=== PATIENT | male | born 1960 | race Caucasian/White ===

== ENCOUNTER 2016-09-21 14:46 | Emergency (ER) | payer OTHER ==
[2016-09-21 15:05] VITALS: BP 145/65; PULSE 73; RESP 15; TEMP 97.9
[2016-09-21] MEDS ORDERED: DIPH,PERTUS(ACELL)TETVAC-LF 0.5 ML VIAL IM ONE (15:10)
[2016-09-21] MEDS ORDERED: BACITRACIN 500 UNIT/GM OINT 28.4 GM TUBE TOPICAL ONE (15:10)
--- NOTE | 2016-09-21 15:13 | ED ---
Burn/Smoke HPI - General Chief complaint: Burn/Smoke Inhalation Stated complaint: Finger Burn Time Seen by Provider: 09/21/16 15:06 Source: patient, RN notes reviewed Mode of arrival: ambulatory Limitations: no limitations - History of Present Illness Initial comments: This a 56-year-old male presents emergency department to complaint burn to his left hand index finger. Patient states that he was pointing fishing [place] and states that he skinned off hot lead input into a pain. He states a minute or 2 later he grabbed the rios and forgot that it was hot. Patient states that he had a burn to his left hand index finger between the MCP and PIP he is unsure when his last tetanus was. He states his skin did peel off immediately states he has full sensation to the area. He states his pain has improved is not painful like yesterday. - Related Data Home Medications Medication Instructions Recorded Confirmed Venlafaxine HCl [Effexor] 75 tab PO QAM 07/25/15 01/15/16 traZODone HCL [Desyrel] 100 mg PO HS PRN 08/19/15 01/15/16 Brexpiprazole [Rexulti] 2 mg PO DAILY 01/15/16 01/15/16 Allergies Allergy/AdvReac Type Severity Reaction Status Date / Time meperidine HCl [From Demerol] Allergy Unknown Rash/Hives Verified 09/21/16 15:05 Review of Systems ROS Statement: Those systems with pertinent positive or pertinent negative responses have been documented in the HPI. ROS Other: All systems not noted in ROS Statement are negative. Past Medical History Past Medical History: Asthma, Osteoarthritis (OA) Additional Past Medical History / Comment(s): asthma as child History of Any Multi-Drug Resistant Organisms: None Reported Past Surgical History: Orthopedic Surgery Additional Past Surgical History / Comment(s): left knee arthroscopy Past Anesthesia/Blood Transfusion Reactions: No Reported Reaction Past Psychological History: No Psychological Hx Reported Smoking Status: Current every day smoker Past Alcohol Use History: None Reported Past Drug Use History: None Reported - Past Family History Mother Family Medical History: No Reported History Father Family Medical History: Diabetes Mellitus General Exam Limitations: no limitations General appearance: alert, in no apparent distress Respiratory exam: Present: normal lung sounds bilaterally. Absent: respiratory distress, wheezes, rales, rhonchi, stridor Cardiovascular Exam: Present: regular rate, normal rhythm, normal heart sounds. Absent: systolic murmur, diastolic murmur, rubs, gallop, clicks Extremities exam: Present: other (Left hand second digit there is a second- degree burn approximately 2 cm wide that extends from MCP to the PIP but does not cross the joints patient has full sensation there is no purulent drainage no bleeding) Course Vital Signs 09/21/16 15:02 Temperature 97.9 F Pulse Rate 73 Respiratory 15 Rate Blood Pressure 145/65 O2 Sat by Pulse 98 Oximetry Medical Decision Making - Medical Decision Making 56-year-old male present emergency department for secondary burn to his finger. This was dressed with bacitracin is redness was updated. We discussed wound care and return parameters. Patient's burn does not cross any joint lines is not circumferential. Disposition Clinical Impression: Second degree burn of finger Disposition: HOME SELF-CARE Condition: Stable Instructions: Second Degree Burn (ED) Additional Instructions: Please return to the Emergency Department if symptoms worsen or any other concerns. Referrals: Travis Agudelo DO [Primary Care Provider] - 1-2 days Time of Disposition: 15:13
== END 2016-09-21 15:51 | disposition home or self-care (01) ==
LOC: EC 14:46
DX: T23.222A Burn of second degree of single left finger (nail) except thumb, initial encounter (principal); F17.200 Nicotine dependence, unspecified, uncomplicated; Z23 Encounter for immunization; Z88.5 Allergy status to narcotic agent; Z79.899 Other long term (current) drug therapy; X19.XXXA Contact with other heat and hot substances, initial encounter; Y93.89 Activity, other specified
CPT/HCPCS: 16020; 90471; 90715; 99283

== ENCOUNTER → 2016-10-26 | Outpatient (CLI) | payer OTHER ==
[2016-10-26 13:02] VITALS: BP 157/85; PULSE 93; RESP 16
--- NOTE | 2016-10-26 13:25 | P.PN ---
Progress Note - Text This is a 56-year-old male was last seen in our clinic in January 2016. At that time the patient had an RFA on the lumbar medial branches which lasted for 2 or 3 months as he states. Since then his pain has been getting worse. The patient feels pain across his lower back more on the right side than the left side with radiation to both legs down to the feet however his lower back pain is more severe than his legs pain. By physical exam he has normal muscle strength in the lower extremities and he has significant tenderness on the right side of his lower back. Facet loading test was positive. We'll use to prescribe Neurontin and Mobic for him and I am going to resume these 2 prescriptions and also give him magnesium oxide 400 mg for a complaint of muscle spasm. I will schedule the patient to have right lumbar medial branch RFA under fluoroscopic guidance.
== END | disposition home or self-care (01) ==
LOC: PNWHC3 12:25
PROVIDERS: ATTEND Anesthesiology
DX: M54.5 Low back pain (principal); Z79.899 Other long term (current) drug therapy; Z79.1 Long term (current) use of non-steroidal anti-inflammatories (NSAID); Z98.890 Other specified postprocedural states
CPT/HCPCS: 99211

== ENCOUNTER 2016-12-17 07:59 | Day surgery (SDC) | payer OTHER ==
[2016-12-15 15:56] VITALS: BMI 28.5
[~2016-12-17 07:59] MED LIST: LACTATED RINGERS 1,000 ML IV ONE
[2016-12-17 09:01] VITALS: RESP 16; TEMP 97.8
--- NOTE | 2016-12-17 10:18 | P.PCN ---
Date of Procedure: 12/17/16 Preoperative Diagnosis: lumbar spondylosis without myelopathy Postoperative Diagnosis: same as above Procedure(s) Performed: left lumbar medial branch radiofrequency ablation under fluoroscopic guidance for levels L2-L3, L3-L4, L4-L5, and L5-S1 Anesthesia: MAC (moderate conscious sedation with IV fentanyl and Versed) Surgeon: Tommy Silva Pathology: none sent Condition: stable Disposition: PACU Description of Procedure: The patient was seen and identified in the preoperative area. Risks, benefits, complications, including but not limited to risk of infection ,bleeding , allergic reactions to the medications and no complete pain relief , and alternatives were discussed with the patient, the patient agreed to proceed with the procedure and signed the consent. IV was started. Vital signs remained stable throughout the procedure. Patient was taken to the OR and time out was completed. The patient was placed in the prone position on the procedure table. The lumber area was prepped and draped in the usual sterile fashion. . Vital signs were closely monitored during the procedure .IV sedation was used during the procedure to decrease patients anxiety. The target points were identified as follows: For the L5-S1 level which corresponds to the dorsal ramus of L5 the target point was at the superior medial aspect of the sacral ala on the left side of the spine on the AP view of fluoroscopy and for the L2, L3, and L4 medial branches the target points were at the connection between the transverse process and the superior articular process of L3, L4, and L5 vertebra respectively on the left oblique view of fluoroscopy. skin was marked, and localized with 1% lidocaineat these points. Subsequently, an 18 [id number] radiofrequency needles with a 10-mm curved active tips were advanced guided by fluoroscopy to each of the target points mentioned above in a superior medial direction to get the active tips as parallel as possible to the medial branches tracks. AP, oblique, and lateral views of fluoroscopy were used to verify needle tips position. Each level then underwent motor testing at 2.5 Hz and 0 to 3 volt with local stimulation, but no radicular symptoms down the legs. Thereafter radiofrequency thermocoagulation at 80 degrees celsius for 90 seconds after injecting 1 ml of PF Marcaine 0.5%(3 mls) with 40 mg of Kenalog. At the end of the procedure, the skin was cleansed and bandages were applied. COMPLICATIONS: No acute complications. DISPOSITION / PLANS: The patient was placed in a supine position and transferred to the recovery area in a stable condition for observation and was discharged from the recovery room after meeting discharge criteria. Home discharge instructions given to the patient by the staff . The patient will schedule a follow up in the clinic in 2-4 weeks.
--- NOTE | 2016-12-17 10:23 | FL ---
EXAMINATION TYPE: FL guided pain mgmt statistic DATE OF EXAM: 12/17/2016 CLINICAL HISTORY: Low back pain. TECHNIQUE: Fluoroscopy. COMPARISON: None. FINDINGS: Fluoroscopic guidance was provided during pain relief procedure performed by Dr. Silva . A total of 22 seconds of fluoroscopic time was utilized during the procedure and 3 spot images are acquired. Images acquired shows needle localization at multiple levels in the lumbar spine. IMPRESSION: As Above.
[2016-12-17] MEDS ORDERED: IV FLUID CONTINUATION 1,000 ML IV ONE (10:25)
[2016-12-17 10:58] VITALS: BP 144/84; PULSE 60
== END 2016-12-17 11:07 | disposition home or self-care (01) ==
LOC: ORPAIN 07:59
PROVIDERS: ATTEND Anesthesiology
DX: M47.816 Spondylosis without myelopathy or radiculopathy, lumbar region (principal); Z88.5 Allergy status to narcotic agent
CPT/HCPCS: 64635; 64636 ×3; J2250; J3301; J3010; 99152; 99153

== ENCOUNTER 2017-03-01 07:12 | Day surgery (SDC) | payer OTHER ==
[2017-02-23 12:49] VITALS: BMI 29.5
[2017-03-01 07:41] VITALS: TEMP 97.8
[2017-03-01] MEDS ORDERED: LACTATED RINGERS 1,000 ML IV ONE (07:43)
[2017-03-01] MEDS ORDERED: LIDOCAINE 1% 20 ML VIAL (10MG/ML) FOR IV START INTRADERMA ONE (07:44)
--- NOTE | 2017-03-01 08:41 | P.PCN ---
Date of Procedure: 03/01/17 Procedure(s) Performed: PREOPERATIVE DIAGNOSIS: 1- Lumbar Degenerative Disc Diseases 2-Lumbar spondylosis with Facet arthropathy without myelopathy POSTOPERATIVE DIAGNOSIS: 1-Lumber Degenerative Disc Diseases 2-Lumbar spondylosis with Facet arthropathy without myelopathy PROCEDURE 1. Lumbar epidural steroid injection under fluoroscopic guidance at the L4-5 level. 2. Lumbar epidurogram. ANESTHESIA: Local with 1% lidocaine 3 ml and , moderate sedation with intravenous Versed 2 mg ,and fentanyle 100 Mcg EBL: Minimal PROCEDURE INDICATION: The patient with low back pain and radiculitis symptoms unresponsive to conservative treatment. Fluoroscopy was used to optimize visualization of the needle placement and to maximize safety. PROCEDURE DESCRIPTION / TECHNIQUE: The patient was seen and identified in the preoperative area. Risks, benefits , complications including but not limited to infections ,bleeding ,allergic reaction to the medications ,nerve damage and not complete pain releife , and alternatives were discussed with the patient. The patient agreed to proceed with the procedure and signed the consent. IV was started, and vital signs were stable. Patient was taken to the OR and time out was completed. The patient was placed in the prone position on procedure table and a pillow was placed under the abdomen to reduce lumbar lordosis. The lumbosacral area was prepped and draped in the usual sterile fashion.ere closely monitored during the procedure. Conscious sedation was used during the procedure to decrease patients anxiety. Vital signs was monitered during the entire procedure. Using anterior-posterior fluoroscopy, the L4-5interlaminar space was identified and the skin over this site was marked and then infiltrated with 1% lidocaine subcutaneously. Subsequently, a 20-gauge Tuohy epidural needle was inserted and advanced toward the epidural space using the ``Loss of resistance technique and guided by AP and lateral fluoroscopy. The correct needle position in the epidural space was verified with the injection of 2 mL of the water soluble contrast dye Omnipaque 180 contrast and observing an excellent epidurogram with the epidural spread of the dye, after negative aspiration for blood and CSF and in the absence of paresthesias. Again after negative aspiration, a 6 ml mixture containing 20 mg of Dexamethasone and 2 ml of preservative free Normal Saline, and 2 ml of preservative free lidocaine 1% solution was injected and a washout of epidurogram was seen. Needle was withdrawn intact, skin was cleansed, and bandages were applied. COMPLICATIONS: None DISPOSITION / PLANS: The patient was placed in a supine position and transferred to the recovery area in a stable condition for observation. There was no evidence of lower extremity motor or sensory deficit after the procedure. Patient was discharged from the recovery room after meeting discharge criteria. Home discharge instructions were given to the patient by the staff. The patient was reexamined prior to discharge. The patient will schedule a follow up in the clinic in 2-4 weeks.
[2017-03-01] MEDS ORDERED: IV FLUID CONTINUATION 600 ML IV ONE (08:47)
--- NOTE | 2017-03-01 08:50 | FL ---
EXAMINATION TYPE: FL guided pain mgmt statistic DATE OF EXAM: 03/01/2017 HISTORY: Pain 2 sec-1 paper film
[2017-03-01 09:06] VITALS: BP 126/79; PULSE 63; RESP 18
== END 2017-03-01 09:25 | disposition home or self-care (01) ==
LOC: ORPAIN 07:12
PROVIDERS: ATTEND Specialist
DX: M51.36 Other intervertebral disc degeneration, lumbar region (principal); M47.816 Spondylosis without myelopathy or radiculopathy, lumbar region
CPT/HCPCS: 62323; J2250; J1100; Q9965; J3010; 99152

== ENCOUNTER 2017-03-29 07:58 | Day surgery (SDC) | payer OTHER ==
[2017-03-24 13:05] VITALS: BMI 30.5
[2017-03-29] MEDS ORDERED: LIDOCAINE 1% 20 ML VIAL (10MG/ML) FOR IV START INTRADERMA ONE (08:57)
[2017-03-29 09:03] VITALS: BP 146/90; PULSE 62; RESP 16; TEMP 97.2
[2017-03-29] MEDS ORDERED: LACTATED RINGERS 1,000 ML IV ONE (09:07)
[2017-03-29] MEDS ORDERED: LACTATED RINGERS 1,000 ML IV SCH (09:45)
--- NOTE | 2017-03-29 12:13 | P.PN ---
Progress Note - Text Progress Note Date: 03/29/17 Patient presented for LESI #2 today but complained of severe numbness in bilateral feet after last LESI. Will postpone procedure to see if numbness improves and will prescribe gabapentin today. Patient will follow up in four weeks.
== END 2017-03-29 10:04 | disposition home or self-care (01) ==
LOC: ORPAIN 07:58
PROVIDERS: ATTEND Anesthesiology
DX: M51.36 Other intervertebral disc degeneration, lumbar region (principal); M54.40 Lumbago with sciatica, unspecified side; R20.0 Anesthesia of skin; Z53.8 Procedure and treatment not carried out for other reasons

== ENCOUNTER → 2017-04-06 | Outpatient (CLI) | payer OTHER ==
[2017-04-06 14:15] VITALS: BP 138/86; PULSE 86; RESP 18
--- NOTE | 2017-04-06 14:33 | P.PN ---
Progress Note - Text Progress Note Date: 04/06/17 Patient returns for followup for chronic back pain with radiation to legs with numbness and tingling. Patient recently underwent LESI x 1, and patient has had persistent numbness in bilateral feet, that has worsened after numbness that came on after previous lumbar RFA. Patient is very upset today because he has not had significant relief from any of the interventions that have been performed thus far. Patient denies adverse drug effects from medications. Today, pt denies new-onset weakness, bowel/bladder incontinence, or any other signs or symptoms of cauda equina syndrome. There are no signs of acute intoxication, and no indications of medication diversion or overuse. In addition to above, 13-point review of systems is also negative for chest pain , shortness of breath, changes in vision, changes in hearing, new onset weakness , abdominal pain, diarrhea, extreme fatigue, malaise, fever, skin changes, homicidal or suicidal ideation, or bowel or bladder incontinence. Vital Signs: Reviewed in EMR Gen: WDWN, AAOx3, NAD HEENT: NCAT, EOMI, hearing grossly normal Pulm: resp unlabored Abd: soft, NT, ND Neck: supple, trachea midline ROM in flexion lumbar spine: reduced ROM in extension lumbar spine: reduced Lumbar paravertebral tenderness: + Facet loading: + bilateral, R > L SI joint tenderness: neg Jesus Manuel's test: neg Straight leg raise: mildly + Neuro: CN II-XII grossly intact, muscle strength lower extremities PRESERVED Imaging: Reviewed in EMR Assessment: 1. lumbar radiculitis 2. lumbar spondylosis 3. chronic pain syndrome Plan: 1. Explanation: Opioid and psychological risk scores were reviewed. Diagnoses , prognoses, and multiple treatment options including but not limited to physical therapy, interventional therapies, adjuvant medical therapies, narcotic medication therapies, and surgery were discussed with the patient and all questions were answered to the patient's satisfaction. 2. Opioid agreement: no opioids prescribed today 3. Counseling: The patient was counseled extensively on BODY MASS INDEX, EXERCISE. Specifically, the patient was instructed regarding the importance of weight control, and exercise in the context of both chronic pain and overall health. 4. Procedures: none for now 5. Consultations: None 6. Investigations: EMG/NCV bilateral lower extremities 7. Medications: none 8. Disposition: f/u for procedure as scheduled PQRS measures: 1-Patient's medications are documented in the chart. 2-Tobacco use is positive 3-Patient has not had a pneumococcal vaccine. 4-Advanced care planning discussed, patient unable to give. 5-Opioid contract NOT signed with the patient. 6-Pain positive, follow-up visit or procedure scheduled 7-Patient's blood pressure measured and documented, and patient will follow up with the primary care due to hypertension. 8-Patient's weight was measured, and body mass index ABOVE the normal limits, and counseling was done. Patient instructed to follow up with PCP. 9-Patient WAS NOT identified as an unhealthy alcohol user.
== END ==
LOC: PNWHC3 13:53
PROVIDERS: ATTEND Anesthesiology
DX: G89.4 Chronic pain syndrome (principal); M47.26 Other spondylosis with radiculopathy, lumbar region
CPT/HCPCS: 99211

== ENCOUNTER → 2017-05-10 | Outpatient (CLI) | payer OTHER ==
--- NOTE | 2017-05-10 14:27 | P.PN ---
Subjective Progress Note Date: 05/10/17 This is 57 years old male with a chronic history of severe low back pain diagnosed with lumbar bulging disc disease and lumbar spondylosis, we have none radiofrequency ablation of the medial branch lumbar area, and we have done lumbar epidural steroid injections, he continued to have severe low back pain with numbness and tingling sensation in the lower extremities, he denies any change in the bowel movements or urination. Denies any motor or sensory deficit , and he reported the pain is constant and increases with any activity intensity of the pain interfering with his quality of life , and preventing him from doing activities of daily livings, Objective - Vital Signs Vital signs: Intake & Output 05/09/17 05/10/17 05/10/17 18:59 06:59 18:59 Weight 99.79 kg - Exam Physical Examinations : 1-Constitutiona : Cooperative , not in acute distress . 2-HEENT : nech ; supple , no Lymphadenopathy , normal thyroid size . eyes : no ptosis , no icterus, no photophobia . ENT : normal of hearing , normal oropharynx , no Thrush . 3- Respiratory : Chest clear to auscultations Bilaterally , no wheezing , no Rhonchi . 4- Cardiovascular : regular rate and rhythem , S1 , S2 , no S3 , no S4. 5- Gastrointestinal : abdomen soft no tenderness , bowel sounds positive all four quadrents , no organomegally . 6- Genitourinary : Defferred . 7- neurologic : Cranial nerve II to XII intact , no focal neurological deffecit . 8-psychatric : alert , oriented X 3 , appropriate affect , intact judgment and insight . 9-Lymphatic : no Lymphadenopathy . 10- musculoskeltal : , Lumber spine = normal moter stegnth lower extremities ,thigh and legs .5/5 deep tendon reflexes : normal Knee Jerk , normal ankle Jerk . lumber facet Loading Test positive strait leg raising test positive at 30 degree Right , positve at 30 degree Left Fabere test positive Right and positive Left Sever tenderness over the Sacroiliac joint on the Right , and Left side Assessment and Plan Plan: Assessment and plan= chronic low back pain secondary to lumbar degenerative disc disease , lumbar spondylosis with lumbar facet arthropathy , Patient had no benefit after lumbar epidural steroid injections, and he had no benefit after the radiofrequency ablation of the medial branch lumbar area I will refer patient to be evaluated by spine surgeon. Prescription for [place] 7.5/325 every 8 hours given, also on Neurontin 100 mg 3 times a day Time with Patient: Less than 30
[2017-05-10 15:36] VITALS: BP 139/81; PULSE 76; RESP 16
== END | disposition home or self-care (01) ==
LOC: PNWHC3 12:46
PROVIDERS: ATTEND Specialist
DX: G89.29 Other chronic pain (principal); M54.5 Low back pain; M51.36 Other intervertebral disc degeneration, lumbar region; M47.816 Spondylosis without myelopathy or radiculopathy, lumbar region; M46.86 Other specified inflammatory spondylopathies, lumbar region; Z79.891 Long term (current) use of opiate analgesic
CPT/HCPCS: 80307; G0480 ×2; G0463; 80349; 80356; 99211

== ENCOUNTER → 2017-06-07 | Outpatient (CLI) | payer OTHER ==
[2017-06-07 12:10] VITALS: BP 141/86; PULSE 80; RESP 16
--- NOTE | 2017-06-07 15:34 | P.PAINPG ---
Subjective Progress Note Date: 06/07/17 This is 57 years old male with a chronic history of severe low back pain diagnosed with lumbar bulging disc disease and lumbar spondylosis, we have none radiofrequency ablation of the medial branch lumbar area, and we have done lumbar epidural steroid injections, he continued to have severe low back pain with numbness and tingling sensation in the lower extremities, he denies any change in the bowel movements or urination. Denies any motor or sensory deficit , and he reported the pain is constant and increases with any activity intensity of the pain interfering with his quality of life , and preventing him from doing activities of daily livings, patient currently on [place] 7.5/325 every 8 hours when necessary for pain and Neurontin 3 mg every 8 hours, he denies any side effects of the medication he denies any excessive drowsiness or sleepiness, patient was started on this medication last, he reported that he used to use marijuana and he stopped using it since we started him on the pain medication, and he reported the current pain medication helping him to control the pain, Objective - Vital Signs Vital signs: Vital Signs Temp Pulse 80 06/07/17 12:03 Resp 16 06/07/17 12:03 BP 141/86 06/07/17 12:03 Pulse Ox Intake & Output 06/06/17 06/07/17 06/07/17 18:59 06:59 18:59 Weight 97.522 kg - Exam Physical Examinations : 1-Constitutiona : Cooperative , not in acute distress . 2-HEENT : nech ; supple , no Lymphadenopathy , normal thyroid size . eyes : no ptosis , no icterus, no photophobia . ENT : normal of hearing , normal oropharynx , no Thrush . 3- Respiratory : Chest clear to auscultations Bilaterally , no wheezing , no Rhonchi . 4- Cardiovascular : regular rate and rhythem , S1 , S2 , no S3 , no S4. 5- Gastrointestinal : abdomen soft no tenderness , bowel sounds positive all four quadrents , no organomegally . 6- Genitourinary : Defferred . 7- neurologic : Cranial nerve II to XII intact , no focal neurological deffecit . 8-psychatric : alert , oriented X 3 , appropriate affect , intact judgment and insight . 9-Lymphatic : no Lymphadenopathy . 10- musculoskeltal : , Lumber spine = normal moter stegnth lower extremities ,thigh and legs .5/5 deep tendon reflexes : normal Knee Jerk , normal ankle Jerk . lumber facet Loading Test positive strait leg raising test positive at 30 degree Right , positve at 30 degree Left Fabere test positive Right and positive Left Assessment and Plan Plan: Assessment and plan= chronic low back pain secondary to lumbar degenerative disc disease , lumbar spondylosis with lumbar facet arthropathy , Patient already scheduled appointment with the spine surgeon Dr. Durham will see him next few days chronic and current use of high-risk medication (opioids) Patient denies any side effects of the current pain medication and the current treatment/medication ML and the patient to do activity of daily living , Diagnoses, prognosis, treatment options, including but not limited to physical therapy, medication management, interventional therapies, and surgery, were discussed with the patient All the questions answered Patient signed the narcotic agreement, and he was orally counseled, not to overuse, not to abuse, not to Divert , not tp sell pain medication, and to take it as prescribed only, Patient was counseled not to drive or operate heavy equipment while using narcotic medication, and advised not to use alcohol or any Illicit drugs while using the narcotis, the patient's verbalized understanding that lack of compliance with any of the above instructions and will likely to cause discharge from the pain service, not to renew his narcotic prescriptions Medication managements= patient will be given prescription refills for [place] 7.5/325 every 8 hours dispense 90, Neurontin 100 mg 3 times a day dispense 90 , Urine drug screen ordered today the Angus was reviewed and it was appropriate , Time with Patient: Less than 30 PQRS Measure Charge Sheet Measure #130: Documentation of Current Meds in Medical Chart: Patient's medications documented in chart Measure #226: Tobacco Use: Screen & Cessation Intervention: Pt screened for tobacco use AND intervention given Measure #111: Pneumonia Vaccination: Pneumococcal vaccine NOT administered or previously given Measure #47: Advance Care Plan: Advance care planning discussed & documented, plan or surrogate given Measure #412: Opioid Treatment Agreement: Documented signed opioid trtmnt agreemnt min once during opioid trtmnt Measure #408: Opioid Therapy Follow-up Evaluation: Patient had f/u eval minimum every 3 months during opioid therapy Measure #317: Preventitive Care & Scrn High Bld Press & F/U: Pre-hypertensive or hypertensive BP documented, pt will f/u with PCP Measure #128: Body Mass Index (BMI) Screening & Follow-up: BMI documented ABOVE normal parameters - f/u documented Measure #131: Pain Assessment & Follow-up: Pain positive & plan documented, Follow-up scheduled Measure #431: Unhealthy Alcohol Use Preventative Care & Scrn: Patient not identified as an unhealthy alcohol user PQRS Narrative: Smoking Status Current every day smoker Do You Want the Pneumonia No Vaccine AT THIS TIME? Narcotic Agreement Date Signed 05/10/17 Blood Pressure 141/86 Pain Intensity [Bilateral 4 Lower Back] Scale Used Numeric (1 - 10) Hx Alcohol Use (MH) No Home Medications: Ambulatory Orders Venlafaxine HCl [Effexor] 75 tab PO QAM 07/25/15 QUEtiapine [SEROquel] 50 mg PO HS 11/16/16 Gabapentin [Neurontin] 100 mg PO TID #90 cap 06/07/17 HYDROcodone/APAP 7.5-325MG [[place] 7.5-325] 1 tab PO Q6HR PRN #90 tab 06/07/17 Controlled Substance Measures - Controlled Substance Measures Is patient prescribed a controlled substance at discharge?: Yes If prescribed controlled substance>3 days was MAPS reviewed?: Yes When asked, does pt state using other controlled substances?: No
== END | disposition home or self-care (01) ==
LOC: PNWHC3 11:51
PROVIDERS: ATTEND Specialist
DX: G89.29 Other chronic pain (principal); M54.5 Low back pain; M51.36 Other intervertebral disc degeneration, lumbar region; M47.816 Spondylosis without myelopathy or radiculopathy, lumbar region; M46.86 Other specified inflammatory spondylopathies, lumbar region; F17.200 Nicotine dependence, unspecified, uncomplicated; Z79.52 Long term (current) use of systemic steroids; Z79.891 Long term (current) use of opiate analgesic; Z79.899 Other long term (current) drug therapy
CPT/HCPCS: 80307; G0480 ×3; G0463; 80349; 80356; 80364; 99211

== ENCOUNTER → 2017-06-29 | Outpatient (CLI) | payer OTHER ==
[2017-06-29 14:56] LABS: Basophils % (A) 1 %; Eosinophils # (A) 0.1 k/uL (0-0.7); Eosinophils % (A) 2 %; HGB 15.2 gm/dL (13.0-17.5); Lymphocytes # (A) 1.5 k/uL (1.0-4.8); Lymphocytes % (A) 25 %; MCH 31.8 pg (25.0-35.0); MCHC 34.5 g/dL (31.0-37.0); MCV 92.3 fL (80.0-100.0); Mean Platelet Volume 6.6; Monocytes # (A) 0.4 k/uL (0-1.0); Monocytes % (A) 6 %; Neutrophils # (A) 3.9 k/uL (1.3-7.7); Neutrophils % (A) 64 %; Platelet Count 281 k/uL (150-450); RBC 4.77 m/uL (4.30-5.90); RDW 12.7 % (11.5-15.5); WBC 6.1 k/uL (3.8-10.6)
[2017-06-29 14:59] LABS: Amorphous Sediment,Urine Rare /hpf; Appearance,Urine Cloudy (Clear); Bacteria,Urine Moderate /hpf; Bilirubin,Urine Negative (Negative); Blood,Urine Negative (Negative); Color,Urine Yellow; Glucose,Urine (UA) Negative (Negative); Ketones,Urine Negative (Negative); Leukocyte Esterase,Urine Negative (Negative); Mucus,Urine Rare /hpf; Nitrite,Urine Negative (Negative); PH, Urine 6.5 (5.0-8.0); Protein,Urine Negative (Negative); RBC,Urine 8 /hpf (0-5); Specific Gravity,Urine 1.014 (1.001-1.035); Urobilinogen,Urine <2.0 mg/dL (<2.0); WBC,Urine 3 /hpf (0-5)
[2017-06-29 15:02] LABS: Partial Thromboplastin Time 24.3 sec (22.0-30.0); Prothrombin Time 9.8 sec (9.0-12.0)
--- NOTE | 2017-06-29 15:18 | XR ---
EXAMINATION TYPE: XR chest 2V DATE OF EXAM: 06/29/2017 COMPARISON: NONE INDICATION: Presurgical clearance TECHNIQUE: Frontal and lateral views of the chest are obtained. FINDINGS: The heart size is normal. The pulmonary vasculature is normal. The lungs are clear. IMPRESSION: 1. No acute pulmonary process.
== END | disposition home or self-care (01) ==
LOC: LABPAT 14:13
PROVIDERS: ATTEND Orthopaedic Surgery Orthopaedic Surgery of the Spine
DX: Z01.818 Encounter for other preprocedural examination (principal); Z01.812 Encounter for preprocedural laboratory examination; M48.07 Spinal stenosis, lumbosacral region
CPT/HCPCS: 36415; 71046; 81001; 85025; 85610; 85730; 87070

== ENCOUNTER → 2017-07-01 | Outpatient (CLI) | payer OTHER ==
[2017-07-01 12:08] VITALS: BP 152/93; PULSE 86; RESP 16
--- NOTE | 2017-07-01 12:30 | P.PAINPG ---
Subjective Progress Note Date: 07/01/17 Principal diagnosis: Lumbar radiculopathy This is a 57 she'll generally presents today for medication management. He is undergone injection therapy for his low back pain and this has not been effective. He is currently scheduled for lumbar spine surgery in approximately 2 weeks. He reports pain in his back which radiates down his legs. He denies bowel or bladder dysfunction. Objective - Vital Signs Vital signs: Vital Signs Temp Pulse 86 07/01/17 11:59 Resp 16 07/01/17 11:59 BP 152/93 07/01/17 11:59 Pulse Ox Intake & Output 06/30/17 07/01/17 07/01/17 18:59 06:59 18:59 Weight 97.522 kg - Exam General: The patient is alert and oriented. Patient is not sedateded Patient is a question appropriately. Cardiac: Heart is regular in rate and rhythm Respiratory: Clear to auscultation. No audible wheezes. Abdomen: Soft nontender nondistended. Lower extremities: Strength is normal bilaterally. Sensation is normal bilaterally. Reflexes are preserved and symmetric bilaterally. Straight leg raise is positive bilaterally. Significant pain with facet loading. Assessment and Plan (1) Lumbar radiculopathy Current Visit: Yes Status: Acute Code(s): M54.16 - RADICULOPATHY, LUMBAR REGION SNOMED Code(s): 995100518 Plan: Plan of Care 1. Medications: Refill the patient's description for [place] today. I have reviewed his previous urine drug screens. Both of them were positive for marijuana however the levels of marijuana had fallen precipitously. Given the timeframe, I do believe the patient is complying with this plan of care. He will receive a refill today and then further refills will be through his spine surgeon after his operation. I have reviewed the patient's MAPS report and it reveals expected results. Patient has signed an opiate agreement as well as opiate consent for treatment in our clinic. They understand the risks and benefits of opiate medications. They are aware of the potential for addiction. 2. Interventions: no Further indications for intervention at this time 3. Referrals: None 4. Testing: None 5. Psychological: Patient doesn't have a history of severe depression including suicide attempt. He is currently under the care of a mental health professionals. He reports that his depression is under good control. He denies any exacerbation of his depression from these opiates. He is well aware of the serious problem of depression and is in agreement to continue treating with his psychologist. PQRS Measure Charge Sheet Measure #130: Documentation of Current Meds in Medical Chart: Patient's medications documented in chart Measure #226: Tobacco Use: Screen & Cessation Intervention: Pt not a tobacco user Measure #111: Pneumonia Vaccination: Pneumococcal vaccine NOT administered or previously given Measure #47: Advance Care Plan: Advance care planning discussed & documented, pt chose/unable to give Measure #412: Opioid Treatment Agreement: Documented signed opioid trtmnt agreemnt min once during opioid trtmnt Measure #408: Opioid Therapy Follow-up Evaluation: Patient had f/u eval minimum every 3 months during opioid therapy Measure #317: Preventitive Care & Scrn High Bld Press & F/U: Pre-hypertensive or hypertensive BP documented, pt will f/u with PCP Measure #128: Body Mass Index (BMI) Screening & Follow-up: BMI documented within normal parameters Measure #131: Pain Assessment & Follow-up: Pain positive & plan documented Measure #431: Unhealthy Alcohol Use Preventative Care & Scrn: Patient not identified as an unhealthy alcohol user PQRS Narrative: Smoking Status Current every day smoker Do You Want the Pneumonia No Vaccine AT THIS TIME? Narcotic Agreement Date Signed 05/10/17 Blood Pressure 152/93 Pain Intensity [Bilateral 7 Lower Back] Scale Used Numeric (1 - 10) Hx Alcohol Use (MH) No Home Medications: Ambulatory Orders Venlafaxine HCl [Effexor] 75 tab PO QAM 07/25/15 QUEtiapine [SEROquel] 50 mg PO HS 11/16/16 Gabapentin [Neurontin] 100 mg PO TID #90 cap 06/07/17 HYDROcodone/APAP 7.5-325MG [[place] 7.5-325] 1 tab PO Q6HR PRN #90 tab 06/07/17 Controlled Substance Measures - Controlled Substance Measures Is patient prescribed a controlled substance at discharge?: Yes When asked, does pt state using other controlled substances?: No If prescribed controlled substance>3 days was MAPS reviewed?: Yes If Rx opioid, was Start Talking consent form obtained?: No If opioid is for acute pain is fill amount 7 days or less?: No Was information provided regarding opioid addiction?: Yes
== END | disposition home or self-care (01) ==
LOC: PNWHC3 11:54
PROVIDERS: ATTEND Pain Medicine Pain Medicine
DX: M54.16 Radiculopathy, lumbar region (principal); F17.200 Nicotine dependence, unspecified, uncomplicated; Z79.891 Long term (current) use of opiate analgesic; Z79.899 Other long term (current) drug therapy; Z76.89 Persons encountering health services in other specified circumstances
CPT/HCPCS: 99211

== ENCOUNTER 2017-07-14 05:48 | Inpatient (IN) | payer OTHER ==
[2017-07-06 14:30] VITALS: BMI 29.1
[~2017-07-14 05:48] MED LIST changes: +BACITRACIN 50,000 UNIT, POLYMYXIN B 500,000 UNIT in SODIUM CHLORIDE 0.9% IRRIGATIO 1,00... IRRIGATION ONE; -LACTATED RINGERS 1,000 ML IV ONE; +ceFAZolin IN SWFI 2 GM/20 ML SYRINGE IVP ONE
[2017-07-14] MEDS ORDERED: LACTATED RINGERS 1,000 ML IV ONE ×2 (06:36→08:48)
[2017-07-14] MEDS ORDERED: ONDANSETRON 4 MG/2 ML VIAL ONE (06:43)
[2017-07-14] MEDS ORDERED: ONDANSETRON 4 MG/2 ML VIAL IVP ONE (06:49)
[2017-07-14] MEDS ORDERED: GLYCOPYRROLATE 0.2 MG/ML 2 ML VIAL ONE (07:58)
[2017-07-14] MEDS ORDERED: fentaNYL (PF) 50 MCG/ML 2 ML AMP ONE (07:58)
[2017-07-14] MEDS ORDERED: MIDAZOLAM 2 MG/2 ML VIAL ONE (07:58)
[2017-07-14] MEDS ORDERED: PROPOFOL 10 MG/ML 20 ML VIAL IV ONE (07:58)
[2017-07-14] MEDS ORDERED: PHENYLEPHRINE-0.9% NACL SYG 1 MG/10 ML SYRINGE ONE (07:58)
[2017-07-14] MEDS ORDERED: HEPARIN SODIUM,PORCINE 10,000 UNIT/ML 1 ML VIAL ONE (07:58)
[2017-07-14] MEDS ORDERED: ePHEDrine SULFATE/0.9% NACL/PF 50 MG/5 ML SYRINGE IV ONE (07:58)
[2017-07-14] MEDS ORDERED: WATER FOR INJECTION, STERILE 10 ML VIAL IV ONE (07:58)
[2017-07-14] MEDS ORDERED: SUCCINYLCHOLINE CHLORIDE 100 MG/5 ML SYR IV ONE (07:58)
[2017-07-14] MEDS ORDERED: LIDOCAINE 1% INJ 10MG/ML (20 ML MDV) ONE (07:58)
[2017-07-14] MEDS ORDERED: SODIUM CHLORIDE 0.9% IRRIG 1,000 ML BTL IRRIGATION ONE (07:58)
[2017-07-14] MEDS ORDERED: LIDOCAINE 0.5%-EPI 1:200,000 50 ML VIAL SQ ONE (08:47)
[2017-07-14] MEDS ORDERED: THROMBIN (BOVINE) 5,000 UNIT VIAL TOPICAL ONE (08:47)
[2017-07-14] MEDS ORDERED: GELATIN SPONGE,ABSORB (SMALL) 1 EACH SPONGE TOPICAL ONE (08:47)
[2017-07-14] MEDS ORDERED: BUPIVACAINE-EPI 0.5%-1:200,000 10 ML VIAL SQ ONE ×2 (08:47)
[2017-07-14] MEDS ORDERED: BENZOCAINE/MENTHOL LOZENG 1 EACH LOZENGE MUCOUS MEM PRN (11:52)
[2017-07-14] MEDS ORDERED: HYDROmorphone 0.5 MG/0.5 ML SYRINGE IVP PRN (11:52)
[2017-07-14] MEDS ORDERED: ONDANSETRON 4 MG/2 ML VIAL IVP PRN (11:52)
[2017-07-14] MEDS ORDERED: HYDROcodone/APAP 5-325MG 1 EACH TAB PO PRN ×2 (11:52)
[2017-07-14] MEDS ORDERED: MAGNESIUM HYDROXIDE 2,400 MG/10 ML CUP PO PRN (11:52)
--- NOTE | 2017-07-14 11:59 | XR ---
Fluoroscopy History: lumbar fusion lumbar fusion, 1min 31sec fl time
--- NOTE | 2017-07-14 12:02 | P.OP ---
Date of Procedure: 07/14/17 Preoperative Diagnosis: Spinal stenosis L4 4 5 L5-S1, degenerative disc disease L4 5 L5-S1, lower extremity radiculopathy, facet arthrosis, low back pain Postoperative Diagnosis: Same Anesthesia: GETA Pathology: none sent Condition: stable Disposition: PACU Description of Procedure: DESCRIPTION OF PROCEDURE(S): BRIEF OPERATIVE NOTE Preoperative Diagnosis: Spinal stenosis L 4 5 L5-S1, degenerative disc disease L4 5 L5-S1, lower extremity radiculopathy, facet arthrosis, low back pain Postoperative Diagnosis: Same Procedure: Laminectomy and decompression L4 5 L5-S1 Minimally invasive Posterior lateral decompression and fusion L4 5 L5-S1 Minimally invasive Transforaminal lumbar interbody fusion for a 360 fusion L4 5 L5-S1 Discectomy for decompression L4 5 L5-S1 Placement of interbody graft L4 5 L5-S1 Local autogenous bone grafting Harvesting of bone marrow aspirate via the pedicle of L4 on the right Use of Cell Saver Use of bone graft extenders Surgeon: Dr. Durham Estimating Engineer: Noe ZAMORA who is present throughout the entire the case persistence during positioning, dissection, exposure, visualization, and all crucial elements of the case as well as closure. Anesthesia: General anesthesia Estimated blood loss: Approximately 500 mL with 211 given back through Cell Saver Complications: None apparent Components implanted: K to him minimally invasive [place] pedicle screw system with 6.5 mm screws 2 rods, one Hart interbody cage and 1 peek interbody peek cage, as well as 1 osteo amp sponge and 30 mL of DBX bone fibers to supplement the local autogenous bone graft and bone marrow aspirate Disposition: To recovery room in good stable condition. OPERATIVE INDICATIONS The patient has had long-standing issues in their lower back and lower extremities. He was found to have significant changes at L4 5 and L5-S1 with spinal stenosis and degenerative disc disease. His symptoms had been progressive and he had shown evidence of worsening over on his imaging findings. His imaging correlated well with his low back and lower extremity symptoms. The patient has been through conservative treatment. He is not having any prolonged benefit despite aggressive conservative treatment. We discussed various treatment options including surgery, and the patient wishes to proceed with surgery We discussed the risk, patient's alternatives and benefits of surgery including but not limited to, risk of bleeding risk of infection, risk of need for further surgery, risk of decreased, loss of motion, muscle function, malunion nonunion, hardware failure, nerve damage, paralysis, heart attack, blindness and . OPERATIVE SUMMARY After discussing all the risks, patient alternatives and benefits at length, the patient elected to proceed with surgical intervention, signed informed consent, and presented for their procedure. The patient was seen and examined in the preoperative holding area and the surgical site was marked. The patient was given antibiotics and brought to the operating room. The patient was sedated and intubated by anesthesia in standard fashion. The patient was positioned on to the operating room table in a prone position on the appropriate frame which was well-padded and well molded. We were careful to pad any bony prominences and pressure points. We were careful to maintain the patient's cervical spine and good neutral alignment and position throughout. The patient was prepped and draped in a normal standard fashion. An appropriate timeout and keystone protocol performed. We were able to proceed with the surgery. The local wound area was infiltrated with local anesthetic. I was able utilize C-arm guidance to establish appropriate position over the pedicles bilaterally at the appropriate levels at L4 5 and S1. With the appropriate levels confirmed was able to make small stab incisions over the appropriate pedicle sites bilaterally. Utilizing C-arm in his house able to establish a Jamshidi needle over the lateral aspect of the pedicle and advanced the trocar into the pedicle being careful not to breech superiorly inferiorly medially or laterally. Position was confirmed regularly with AP and lateral images on C-arm. I was able to establish the trocar into the pedicle appropriately into the posterior aspect of the vertebral body bilaterally at the appropriate levels at L4 5 and S1. This was done at each of the pedicle positions and each of the vertebrae. At L4 on the right I set up to aspirate bone marrow aspirate via the trocar. I was able to aspirate approximately 20 mL of bone marrow aspirate to be used with the local and allograft bone graft later in the case. I was able place the guidewire into the trocar and into the vertebral body appropriately under C-arm guidance at each level. Dissection was taken down over the wire to the appropriate starting position for the screw placed. The appropriate length screw was chosen, threaded over the guidewire and screwed appropriately into the pedicle and vertebral body under C-arm guidance in excellent alignment and position with good bony purchase. This is done at each of the screw sites at the appropriate levels at L4 5 and S1. With the screws intact I extended the incision to connect the screw hole sites on the most symptomatic side on the right. I dissected down to establish access over the pars and lamina to the base of the spinous process. I was able to expose the facet joint. The capsule the facet was taken down and showed some facet arthrosis at the joint. I was able to use a combination of curettes and [place] rongeurs and a high-speed drill to take down the facet joint and do a facetectomy. Partial laminectomy was also performed. Note was made of significant thickening of the ligamentum flavum and narrowing of the neural foramen at L4 5 and L5-S1. I was able get excellent foraminal decompression and central decompression with undermining across midline to perform a laminectomy centrally and contralaterally. As able get good central decompression. The ligamentum flavum was taken down to further decompress centrally and at bilateral neural foramen. I was able to expose the disc space and visualize the traversing nerve root. Note was made of some disc protrusion at the level causing further compression of the nerve root. I was able to establish a annulotomy at the appropriate level protecting soft tissue and neural structures at L4 5 and L5-S1. Note was made of some disc desiccation at the disc. I performed a complete discectomy with accommodation of curettes and rasps and scrapers. I was able get good endplate preparation at the disc space. I sized for the appropriate size interbody spacer protecting the soft tissue and neural structures. The wound was copiously irrigated and suctioned dry. There is no evidence of any dural tear or leak. I was able to pack the disc space with local autogenous bone graft as well as a small amount of bone graft which was also placed into the interbody cage itself. Protecting the soft tissue structures and neural structures I was able place the interbody cage in good alignment and good position with good fit and fill at the interbody space. His issues was confirmed with C-arm guidance. Good hemostasis maintained. There is no evidence of any dural tear or leak. The wound was irrigated and suctioned dry. With the hardware intact, intraoperative C-arm imaging was again taken which showed good alignment and position of the hardware at the appropriate levels at L4 5 and L5-S1. We were then able to measure, contour and place the rods and appropriate hardware bilaterally. I was able to place capcrews, tighten them down, and torque them with the torque screwdriver appropriately. With this intact I was able to place the local autogenous bone graft with additional bone graft enhancer as necessary into the posterior lateral gutters over the decorticated transverse processes. The remainder of the bone graft was placed over the facet joint on the contralateral side after taking down the facet joint capsule. With the bone graft intact, a stable construct, and good decompression at the appropriate levels, we were able to proceed with closure. Good hemostasis was maintained. There is no evidence of dural tear or leak. The fascia was closed for a watertight closure. he subcuticular tissue was closed with absorbable suture. The wound was cleaned and dried and dressed with the appropriate dressing. The drapes were broken down. The patient was gently rolled back onto their hospital bed being careful to maintain their cervical spine and good neutral alignment and position. They were woken up by anesthesia, extubated, and brought to the recovery room in good stable condition. The patient will be admitted to the hospital for appropriate postoperative care , medical management and monitoring. We will continue to follow them closely about the postoperative course.
[2017-07-14] MEDS: HYDROmorphone 1 MG/ML 1 ML SYRINGE IVP ONE ×4 (12:16→13:09)
[2017-07-14] MEDS: SODIUM CHLORIDE 0.9% 1,000 ML IV SCH (13:29)
[2017-07-14] MEDS: HYDROmorphone 0.5 MG/0.5 ML SYRINGE IVP PRN ×3 (14:20→23:05)
[2017-07-14] MEDS: GABAPENTIN 100 MG CAP PO SCH ×2 (16:13→20:55)
[2017-07-14] MEDS: ceFAZolin IN SWFI 2 GM/20 ML SYRINGE IVP SCH ×2 (16:13→23:05)
[2017-07-14] MEDS: DIAZEPAM 5 MG TAB PO PRN ×2 (16:13→21:37)
[2017-07-14] MEDS: HYDROcodone/APAP 7.5-325MG 1 EACH TAB PO PRN (17:51)
[2017-07-14] MEDS: NICOTINE 14MG/24HR PATCH TRANSDERM SCH (19:02)
--- NOTE | 2017-07-14 20:04 | CONS ---
CONSULTATION DATE OF CONSULTATION: 07/14/17 REASON FOR CONSULTATION: Medical management requested by Dr. Durham. CONSULTATION: This is a pleasant 57 year old patient with severe lumbar arthritis, radiculopathy down the leg, has undergone surgery for the same. Postop has got significant pain. No nausea, vomiting. Lying in bed. Chronic stable medical conditions include chronic tinnitus, insomnia, depression, osteoarthritis. REVIEW OF SYSTEMS: Constitutional: Tired. HEENT: Chronic tinnitus. Respiratory: Occasional short of breath. Cardiovascular none. Gastrointestinal none. Genitourinary: None. Musculoskeletal: Arthritic pain in many joints. Dermatological and hematologic, lymphatic none. Psychiatry none. Psychiatry: Depression, controlled. Neurological: Trouble sleeping. PAST MEDICAL HISTORY: Asthma, hearing disorder, osteoarthritis, chronic low back pain, asthma as a child, chronic tinnitus. PAST SURGICAL HISTORY: Left knee arthroscopy. PAST PSYCH HISTORY: Depression. SOCIAL HISTORY: The patient smoked for close to 40 years, less than a pack a day. 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 FAMILY HISTORY: Reviewed noncontributory to presentation. HOME MEDICATIONS: 1. Effexor 75 mg a day. 2. Seroquel 100 mg q.h.s. 3. [place] 7.5 one tab q.6h p.r.n. 4. Neurontin 100 mg t.i.d. ALLERGIES: None. PHYSICAL EXAMINATION: VITAL SIGNS: Temperature 97.8, pulse 80, respirations 16, blood pressure 120/80, pulse ox 95% on room air. GENERAL APPEARANCE: Average build, lying in bed. Some uncomfortable appearing. EYES: Pupils are equal. Conjunctivae normal. HEENT: External appearance of nose and ears normal. Oral cavity normal. NECK: JVD not raised. Mass not palpable. RESPIRATORY effort normal. LUNGS slightly decreased breath sounds. CARDIOVASCULAR: 1st and 2nd sounds normal. No edema. ABDOMEN: Soft, nontender. Liver and spleen not palpable. LYMPHATICS: No lymph nodes palpable in neck or axillae. PSYCHIATRY: Alert and oriented x3. Mood and affect anxious-appearing. NEUROLOGICAL: Pupils equal. Cranial nerves grossly intact. EXTREMITIES: Somewhat limited range of motion lower extremity because of pain. Venodyne boots in place. Dressing of the lower lumbar spine. INVESTIGATIONS: No blood work was done. ASSESSMENT: 1. Lumbar spine surgery for severe pain and radiculopathy. 2. Primary osteoarthritis. 3. Chronic bilateral tinnitus. 4. Chronic insomnia idiopathic. 5. Depression not otherwise specified. 6. Chronic nicotine dependence, patient is a cigarette smoker. PLAN: Home medications are resumed. The patient will be given a nicotine patch. Patient getting IV fluids. Venodyne boots for DVT prophylaxis. Pain control per Dr. Durham. Care was discussed with the patient. Copy to Dr. Agudelo. MMODL / IJN: [id number] /
[2017-07-14] MEDS: QUEtiapine 100 MG TAB PO SCH (20:55)
[2017-07-15] MEDS: HYDROcodone/APAP 7.5-325MG 1 EACH TAB PO PRN ×4 (00:14→20:01)
[2017-07-15] MEDS: DIAZEPAM 5 MG TAB PO PRN (02:38)
[2017-07-15] MEDS: HYDROmorphone 0.5 MG/0.5 ML SYRINGE IVP PRN ×6 (03:42→21:33)
[2017-07-15] MEDS: SODIUM CHLORIDE 0.9% 1,000 ML IV SCH ×2 (03:44→14:43)
[2017-07-15 08:02] LABS: Basophils % (A) 0 %; Eosinophils % (A) 0 %; HCT 38.9 % (39.0-53.0); HGB 13.3 gm/dL (13.0-17.5); Lymphocytes # (A) 1.2 k/uL (1.0-4.8); Lymphocytes % (A) 11 %; MCH 31.6 pg (25.0-35.0); MCHC 34.1 g/dL (31.0-37.0); MCV 92.7 fL (80.0-100.0); Mean Platelet Volume 6.7; Monocytes # (A) 0.6 k/uL (0-1.0); Monocytes % (A) 5 %; Neutrophils # (A) 8.5 k/uL (1.3-7.7); Neutrophils % (A) 82 %; Platelet Count 239 k/uL (150-450); RDW 12.6 % (11.5-15.5); WBC 10.3 k/uL (3.8-10.6)
[2017-07-15 08:21] LABS: Anion Gap 11 mmol/L; Blood Urea Nitrogen 15 mg/dL (9-20); Calcium 8.7 mg/dL (8.4-10.2); Carbon Dioxide 24 mmol/L (22-30); Chloride 102 mmol/L (98-107); Glucose 116 mg/dL (74-99); Potassium 3.7 mmol/L (3.5-5.1); Sodium 137 mmol/L (137-145)
--- NOTE | 2017-07-15 08:59 | P.PN ---
Progress Note - Text Progress Note Date: 07/15/17 Postoperative day #1 Patient is seen and examined today at bedside. The patient has some pain around the surgical site as expected. Pain is being controlled with medication. He has been able to void on his own. He has been able tolerate his diet without any problems thus far. He has not yet been out of bed. Physical Exam Afebrile with stable vital signs Abdomen is soft nontender. Chest has good excursion deep and space expiration The incision site is clean dry and intact. No erythema there is no purulence. The dressing is clear without any active drainage. Extremities have not had neurologic change from prior to surgery. He has sustained dorsal flexion plantar flexion and extensor hallucis longus intact. Calves and thighs were soft nontender without evidence of DVT. Assessment/Plan Postoperative day #1 status post decompression and fusion at L4 5 and L5-S1 for his spinal stenosis and degenerative disc disease with lower extremity radiculopathy Patient is progressing as expected from the surgery. He has not yet been out of bed but we will get him out of bed with physical therapy today. He is okay for him to lay in whatever position makes him most comfortable. We will continue to increase the patient's mobilization with therapy. We will continue pain control with oral or IV medications. We'll continue to follow patient closely.
[2017-07-15] MEDS: NICOTINE 14MG/24HR PATCH TRANSDERM SCH (09:04)
[2017-07-15] MEDS: GABAPENTIN 100 MG CAP PO SCH ×3 (09:04→21:34)
[2017-07-15] MEDS: VENLAFAXINE HCL 75 MG TAB PO SCH (09:04)
[2017-07-15] MEDS: SENNOSIDES-DOCUSATE SODIUM 1 EACH TAB PO SCH (09:28)
--- NOTE | 2017-07-15 20:32 | PN ---
PROGRESS NOTE DATE OF SERVICE: July 15, 2017. PRESENTING COMPLAINT: Lumbar surgery. INTERVAL HISTORY: This patient is status post lumbar surgery. Still having significant pain, has been making urine. Did not have a bowel movement. Did tolerate a diet. No nausea, vomiting. Has been out of bed. REVIEW OF SYSTEMS: Done for constitutional, cardiovascular, GI, pulmonary; relevant findings as above. CURRENT MEDICATIONS: Reviewed include Dilaudid. PHYSICAL EXAMINATION: VITAL SIGNS: Temperature 97.7, pulse 74, respirations 16, blood pressure 146/68, pulse ox 96% on room air. GENERAL APPEARANCE: Lying in bed. Some discomfort. EYES: Pupils are equal. Conjunctivae normal. HEENT: External appearance of nose and ears normal. Oral cavity normal. NECK: JVD not raised. Mass not palpable. RESPIRATORY: Effort normal. LUNGS: Decreased breath sounds. CARDIOVASCULAR: 1st and second sounds. No edema. ABDOMEN: Soft, nontender. Liver and spleen not palpable. PSYCHIATRY: Alert and oriented x3. Mood and affect normal. INVESTIGATIONS: White count 10.3, hemoglobin 13.3. ASSESSMENT: 1. Post lumbar spine surgery for severe pain and radiculopathy. Postop pain is present. 2. Primary osteoarthritis. 3. Chronic bilateral tinnitus. 4. Chronic insomnia idiopathic. 5. Depression not otherwise specified. 6. Chronic nicotine dependence, patient is a cigarette smoker. PLAN: Continue current medication and treatment plan. Encourage the patient to be out of bed and sit up on a chair. MMODL / IJN: [id number] /
[2017-07-15] MEDS: QUEtiapine 100 MG TAB PO SCH (21:34)
[2017-07-16] MEDS: HYDROmorphone 0.5 MG/0.5 ML SYRINGE IVP PRN ×5 (01:00→19:50)
[2017-07-16] MEDS: SODIUM CHLORIDE 0.9% 1,000 ML IV SCH ×2 (05:16→17:40)
[2017-07-16] MEDS: HYDROcodone/APAP 7.5-325MG 1 EACH TAB PO PRN ×2 (05:58→16:13)
[2017-07-16] MEDS: VENLAFAXINE HCL 75 MG TAB PO SCH (08:14)
[2017-07-16] MEDS: GABAPENTIN 100 MG CAP PO SCH ×3 (08:14→21:17)
--- NOTE | 2017-07-16 08:45 | P.PN ---
Progress Note - Text Progress Note Date: 07/16/17 Orthopedic Spine Patient is a pleasant 57-year-old male who is seen and examined at the bedside following posterior lateral decompression and fusion performed Wednesday. Patient states they are doing ok postsurgically. He continues to have significant pain at the surgical sites. He denies lower extremity weakness and radiculopathy bilaterally. He has been able to transfer to bedside chair this morning. He is planning to increase his ambulation with physical therapy today. His pain is slightly better as compared to yesterday. Currently does not complain of nausea, vomiting, fever, or chills. Patient states pain has been adequately controlled. Patient is eating and voiding freely without difficulty. Physical Exam Lumbar Fusion: Status post surgical day number 2 Patient is awake, alert, and oriented 3 Vital signs stable Good chest excursion with deep inspiration and expiration Abdomen soft nontender Dorsiflexion, plantarflexion, and extensor hallucis longus positive sustained bilaterally No signs or symptoms of DVT; no calf pain; pneumatic cuffs intact bilateral lower extremities Dressing is dry and intact with some dried blood at the surgical sites; no erythema, purulence, or signs of infection No active drainage from the surgical sites Pain with palpation around the surgical sites Neurovascularly intact bilaterally lower extremities Assessment: Minimally invasive posterior lateral decompression and fusion with Transforaminal lumbar interbody fusion L4-5 and L5-S1 Low back pain Plan: 1. Ambulate as tolerated; work with Physical Therapy to increase mobilization 2. Continue pain control with IV and oral medications 3. Dressing to remain intact with Telfa and Tegaderm 4. Medical management can continue to manage patient for patient's other medical issues 5. We will continue to follow the patient closely; patient is able to improve over the weekend, we may plan to have him discharged home 6. Patient can follow-up with Noe Hartman PA-C or Dr. Aramis Durham at [facility] in 2-3 weeks following discharge
[2017-07-16] MEDS: NICOTINE 14MG/24HR PATCH TRANSDERM SCH (09:30)
[2017-07-16] MEDS: SENNOSIDES-DOCUSATE SODIUM 1 EACH TAB PO SCH (09:30)
--- NOTE | 2017-07-16 15:30 | US ---
EXAMINATION TYPE: US venous doppler duplex LE LT DATE OF EXAM: 07/16/2017 3:21 PM COMPARISON: NONE CLINICAL HISTORY: pain in calf. Left leg pain x 1 day, exam done portable SIDE PERFORMED: Left TECHNIQUE: The lower extremity deep venous system is examined utilizing real time linear array sonog tesfaye with graded compression, doppler sonography and color-flow sonography. VESSELS IMAGED: External Iliac Vein (EIV) Common Femoral Vein Deep Femoral Vein Greater Saphenous Vein * Femoral Vein Popliteal Vein Small Saphenous Vein * Proximal Calf Veins (* superficial vessels) Grayscale, color doppler, spectral doppler imaging performed of the deep veins of the left lower extr emity. There is normal flow, compressibility, vascular waveforms. Left Leg: Appears negative for DVT IMPRESSION: No sonographic evidence of deep venous thrombosis within the left lower extremity.
--- NOTE | 2017-07-16 19:45 | PN ---
PROGRESS NOTE DATE OF SERVICE: 07/16/2017 PRESENTING COMPLAINT: Lumbar surgery. INTERVAL HISTORY: Patient is status post lumbar surgery, doing much better; actually walked in the hallway today. Did tolerate a diet. Pain is much better controlled. REVIEW OF SYSTEMS: Done for constitutional, cardiovascular, GI, pulmonary; relevant findings as above. CURRENT MEDICATIONS: Reviewed. PHYSICAL EXAMINATION: Temperature 99, pulse 83, respiration 16, blood pressure 150/83, pulse ox 93% on room air. GENERAL APPEARANCE: Lying in bed, comfortable. EYES: Pupils equal. Conjunctivae normal. HEENT: External appearance of nose and ears normal. Oral cavity normal. NECK: JVD not raised. Mass not palpable. RESPIRATORY: Effort normal. LUNGS: Decreased breath sounds. CARDIOVASCULAR: First and second sounds normal. No edema. ABDOMEN: Soft, non-tender. Liver and spleen not palpable. PSYCHIATRY: Alert and oriented x3. Mood and affect normal. MUSCULOSKELETAL: Dressing over the surgical site. INVESTIGATIONS: No blood work from today. ASSESSMENT: 1. Status post lumbar surgery. Patient is clinically doing much better. 2. Primary osteoarthritis. 3. Chronic bilateral tinnitus. 4. Chronic insomnia, idiopathic. 5. Depression not otherwise specified. 6. Chronic nicotine dependence. Patient is a cigarette smoker. PLAN: Patient is doing well. I told the patient to continue to ambulate. Overall clinically doing much better. MMODL / IJN: [id number] /
[2017-07-16] MEDS: QUEtiapine 100 MG TAB PO SCH (21:17)
[2017-07-17] MEDS: HYDROcodone/APAP 7.5-325MG 1 EACH TAB PO PRN ×2 (01:32→11:07)
[2017-07-17] MEDS: HYDROmorphone 0.5 MG/0.5 ML SYRINGE IVP PRN ×2 (04:19→09:52)
[2017-07-17 08:04] VITALS: BP 113/68; PULSE 74; RESP 17; TEMP 98.7
--- NOTE | 2017-07-17 09:37 | P.DS ---
Providers Date of admission: 07/14/17 05:48 Expected date of discharge: 07/17/17 Attending physician: Shima Durham Consults: 07/14/17 11:52 Consult Physician Routine Consulting Provider: Travis Agudelo Consult Reason/Comments: Medical management Do you want consulting provider notified?: Yes 07/14/17 12:02 Consult Physician Routine Consulting Provider: Jacinto Molina Consult Reason/Comments: medical management Do you want consulting provider notified?: Yes Primary care physician: Travis Agudelo - Discharge Diagnosis(es) (1) S/P laminectomy Current Visit: Yes Status: Acute (2) Spinal stenosis at L4-L5 level Current Visit: Yes Status: Acute (3) Status post lumbar spine surgery for decompression of spinal cord Current Visit: Yes Status: Acute Hospital Course: The patient is a 57-year-old male who is status post laminectomy and decompression with minimally invasive L4-L5-S1 fusion on 07/14/[address] Durham. Patient has known history of low back pain and presented to discuss options. After discussion and consideration, patient elected to proceed with surgery The patient was seen preoperatively and medically cleared for surgery by his primary care physician. The procedure was performed without complications or sequelae. The patient was seen and evaluated at bedside today and denies any new complaints. Pain is reasonably controlled. Dressing is clean dry and intact. Her abdomen is soft and nontender. Dorsiflexion, plantarflexion, extensor hallucis longus positive sustaining bilaterally. Calves are soft and nontender. The patient has full foot and ankle motion without difficulty. Patient's bilateral lower extremities are neurovascular intact. Patient is orthopedically stable for discharge to home today. Pertinent Studies: Laboratory Tests 07/15/17 07/15/17 07:08 07:08 WBC 10.3 RBC 4.20 L Hgb 13.3 Hct 38.9 L Neutrophils # 8.5 H Glucose 116 H Patient Condition at Discharge: Stable Plan - Discharge Summary Discharge Rx Participant: Yes New Discharge Prescriptions: New Sennosides-Docusate Sodium [Senokot-S] 2 tab PO DAILY #30 tablet No Action Venlafaxine HCl [Effexor] 75 tab PO QAM QUEtiapine [SEROquel] 100 mg PO HS Gabapentin [Neurontin] 100 mg PO TID #90 cap HYDROcodone/APAP 7.5-325MG [[place] 7.5-325] 1 tab PO Q6HR PRN #90 tab PRN Reason: Pain Discharge Medication List Venlafaxine HCl [Effexor] 75 tab PO QAM 07/25/15 [History] QUEtiapine [SEROquel] 100 mg PO HS 11/16/16 [History] Gabapentin [Neurontin] 100 mg PO TID #90 cap 06/07/17 [Rx] HYDROcodone/APAP 7.5-325MG [[place] 7.5-325] 1 tab PO Q6HR PRN #90 tab 07/01/17 [ Rx] Sennosides-Docusate Sodium [Senokot-S] 2 tab PO DAILY #30 tablet 07/17/17 [Rx] Follow up Appointment(s)/Referral(s): Noe Hartman, ROXANA [PHYSICIAN [employer]BLER] - 2 Weeks (Patient may follow-up with Noe Hartman PA-C or Dr. Aramsi Durham at [facility] in 2-3 weeks following discharge. ) Activity/Diet/Wound Care/Special Instructions: 1. Patient may shower with Tegaderm dressing intact. 2. Patient may remove Tegaderm dressing in 3 days and shower without a dressing at that time. 3. Patient should keep Steri-Strips intact and allow them to fall off naturally. 4. Patient should refrain from driving until at least after their first follow- up appointment in the office. 5. Patient should avoid excessive bending, twisting, and lifting; no lifting greater than 10 pounds 6. Take medications as prescribed 7. Do not soak in tub 8. [facility] [place] - [phone] - will deliver to bedside before discharge. Discharge Disposition: HOME SELF-CARE
[2017-07-17] MEDS: NICOTINE 14MG/24HR PATCH TRANSDERM SCH (09:46)
[2017-07-17] MEDS: GABAPENTIN 100 MG CAP PO SCH (09:46)
[2017-07-17] MEDS: VENLAFAXINE HCL 75 MG TAB PO SCH (09:46)
[2017-07-17] MEDS: SENNOSIDES-DOCUSATE SODIUM 1 EACH TAB PO SCH (09:46)
[2017-07-17] MEDS: SODIUM CHLORIDE 0.9% 1,000 ML IV SCH (09:47)
--- NOTE | 2017-07-17 17:43 | PN ---
PROGRESS NOTE DATE OF SERVICE: 07/17/2017 PRESENTING COMPLAINT: Lumbar surgery. INTERVAL HISTORY: Patient is status post lumbar surgery, doing really well, has not had a bowel movement. I did offer the patient a laxative, but wants to go home and take some there. Pain is much better controlled. No nausea, vomiting. REVIEW OF SYSTEMS: Done for constitutional, cardiovascular, GI, pulmonary, musculoskeletal; relevant findings as above. CURRENT MEDICATIONS: Reviewed. EXAMINATION: Temperature 98.7, pulse 74, respirations 17, blood pressure 113/68, pulse ox 97% on room air. GENERAL APPEARANCE: Lying in bed, comfortable. EYES: Pupils equal. Conjunctivae normal. HEENT: External appearance of nose and ears normal. Oral cavity normal. NECK: JVD not raised. Mass not palpable. RESPIRATORY: Effort normal. LUNGS: Decreased breath sounds. CARDIOVASCULAR: First and second sounds normal. No edema. ABDOMEN: Soft, nontender. Liver and spleen not palpable. PSYCHIATRY: Alert and oriented x3. Mood and affect normal. NEUROLOGICAL: Patient has been walking in the hallway. INVESTIGATION: No blood work from today. ASSESSMENT: 1. Status post lumbar surgery. 2. Primary osteoarthritis. 3. Chronic bilateral tinnitus. 4. Chronic insomnia, idiopathic. 5. Depression, not otherwise specified. 6. Chronic nicotine dependence. Patient is a cigarette smoker. PLAN: Patient doing well. Continue current medication and treatment plan. MMODL / IJN: [id number] /
== END 2017-07-17 12:10 | disposition home health service (06) | DRG 455 ==
LOC: 2ORMAIN 05:48 → 3SUR 11:58
PROVIDERS: ADMIT Orthopaedic Surgery Orthopaedic Surgery of the Spine; ATTEND Orthopaedic Surgery Orthopaedic Surgery of the Spine
PROC: 0SG0071 Fusion of Lumbar Vertebral Joint with Autologous Tissue Substitute, Posterior Approach, Posterior Column, Open Approach (ICD-10-PCS; 2017-07-14)
PROC: 0ST20ZZ Resection of Lumbar Vertebral Disc, Open Approach (ICD-10-PCS; 2017-07-14)
PROC: 0ST40ZZ Resection of Lumbosacral Disc, Open Approach (ICD-10-PCS; 2017-07-14)
PROC: 0SG30AJ Fusion of Lumbosacral Joint with Interbody Fusion Device, Posterior Approach, Anterior Column, Open Approach (ICD-10-PCS; 2017-07-14)
PROC: 0SG3071 Fusion of Lumbosacral Joint with Autologous Tissue Substitute, Posterior Approach, Posterior Column, Open Approach (ICD-10-PCS; 2017-07-14)
PROC: 07DS3ZZ Extraction of Vertebral Bone Marrow, Percutaneous Approach (ICD-10-PCS; 2017-07-14)
PROC: 4A11X4G Monitoring of Peripheral Nervous Electrical Activity, Intraoperative, External Approach (ICD-10-PCS; 2017-07-14)
PROC: 4A11X4G Monitoring of Peripheral Nervous Electrical Activity, Intraoperative, External Approach (ICD-10-PCS; 2017-07-14)
PROC: 0SG00AJ Fusion of Lumbar Vertebral Joint with Interbody Fusion Device, Posterior Approach, Anterior Column, Open Approach (ICD-10-PCS; principal; 2017-07-14 08:00)
DX: M48.07 Spinal stenosis, lumbosacral region (principal); F17.210 Nicotine dependence, cigarettes, uncomplicated; F32.9 Major depressive disorder, single episode, unspecified; F51.04 Psychophysiologic insomnia; H91.90 Unspecified hearing loss, unspecified ear; H93.13 Tinnitus, bilateral; J45.909 Unspecified asthma, uncomplicated; M19.91 Primary osteoarthritis, unspecified site; I10 Essential (primary) hypertension; G89.29 Other chronic pain; M47.26 Other spondylosis with radiculopathy, lumbar region; M51.17 Intervertebral disc disorders with radiculopathy, lumbosacral region; Z88.5 Allergy status to narcotic agent; Z79.899 Other long term (current) drug therapy; Z83.3 Family history of diabetes mellitus
CPT/HCPCS: 36415; 72100; 80048; 85025; 86850; 86891; 86900; 86901

== ENCOUNTER 2018-11-10 18:07 | Emergency (ER) | payer OTHER ==
[2018-11-10 18:22] VITALS: RESP 20; TEMP 98
[2018-11-10] MEDS ORDERED: IBUPROFEN 600 MG TAB PO STA (18:57)
--- NOTE | 2018-11-10 19:05 | ED ---
General Adult HPI - General Source: patient Mode of arrival: ambulatory Limitations: no limitations <Josue Chau - Last Filed: 11/10/18 18:59> <Margarita Michaud P - Last Filed: 11/11/18 03:05> <Ria Vale - Last Filed: 11/15/18 13:25> - General Chief complaint: Psychiatric Symptoms Stated complaint: Mental health Time Seen by Provider: 11/10/18 18:35 - History of Present Illness Initial comments: Patient is a 58-year-old male with history of depression is presenting to the emergency department with a chief complaint of thoughts of self-harm or harming others. Patient reports he has battled depression for most of his life. Patient reports he has been on venlafaxine for over a year. Patient reports about 2 weeks ago he completely stop taking the medication. Patient reports a past 2 weeks he has developed thoughts of hurting others along with increased anger. Patient reports he is "amped up" more than usual and can potentially hurt others. Patient reports he is seeing a counselor at [facility]. Patient reports he came to the ED today for "preventative purposes". Patient denies suicidal thoughts. Patient has back pain but states that is due to his previous surgery for about a year ago. Patient also reports chronic low back pain. Patient denies saddle anesthesias, urinary or bowel incontinence. Patient has no other complaints. (Josue Chau) - Related Data Home Medications Medication Instructions Recorded Confirmed QUEtiapine FUMARATE [SEROquel] 300 mg PO HS 11/10/18 11/10/18 Allergies Allergy/AdvReac Type Severity Reaction Status Date / Time meperidine HCl [From Demerol] Allergy Unknown Rash/Hives Verified 11/10/18 20:36 Review of Systems ROS Other: All systems not noted in ROS Statement are negative. <Josue Chau - Last Filed: 11/10/18 18:59> ROS Other: All systems not noted in ROS Statement are negative. <Margarita Michaud P - Last Filed: 11/11/18 03:05> ROS Other: All systems not noted in ROS Statement are negative. <Ria Vale - Last Filed: 11/15/18 13:25> ROS Statement: Those systems with pertinent positive or pertinent negative responses have been documented in the HPI. Past Medical History Past Medical History: Asthma, Musculoskeletal Disorder, Osteoarthritis (OA) Additional Past Medical History / Comment(s): asthma as child History of Any Multi-Drug Resistant Organisms: None Reported Past Surgical History: Orthopedic Surgery Additional Past Surgical History / Comment(s): left knee arthroscopy ; pain procedures Past Anesthesia/Blood Transfusion Reactions: No Reported Reaction Additional Past Anesthesia/Blood Transfusion Reaction / Comment(s): no hx blood transfusions Past Psychological History: Depression Smoking Status: Current every day smoker Past Alcohol Use History: None Reported Past Drug Use History: None Reported - Past Family History Mother Family Medical History: No Reported History Father Family Medical History: Diabetes Mellitus <Josue Chau - Last Filed: 11/10/18 18:59> General Exam Limitations: no limitations General appearance: alert, in no apparent distress Head exam: Present: atraumatic, normocephalic, normal inspection Eye exam: Present: normal appearance, PERRL, EOMI Pupils: Present: normal accommodation ENT exam: Present: normal exam, normal oropharynx, mucous membranes moist, nor mal external ear exam Neck exam: Present: normal inspection, full ROM. Absent: tenderness Respiratory exam: Present: normal lung sounds bilaterally Cardiovascular Exam: Present: regular rate, normal rhythm, normal heart sounds GI/Abdominal exam: Present: soft. Absent: tenderness Extremities exam: Present: normal inspection, full ROM, normal capillary refill, other (+2 ulnar and radial pulses bilaterally.) Back exam: Present: normal inspection (2 scars in the lumbar region from previous surgery.), full ROM. Absent: tenderness (No tenderness to palpation.) Neurological exam: Present: alert, oriented X3, normal gait Psychiatric exam: Present: normal affect, normal mood Skin exam: Present: warm, intact, normal color <Josue Chau - Last Filed: 11/10/18 18:59> Course Vital Signs 11/10/18 11/10/18 18:20 23:13 Temperature 98 F Pulse Rate 90 78 Respiratory 20 20 Rate Blood Pressure 137/104 152/90 O2 Sat by Pulse 98 98 Oximetry Procedures - Restraint - Face to Face Restraint Occurrence 1 Patient's Immediate Situation: Endangers others' safety Patient's Reaction to the Intervention: Uncooperative, Angry Patient's Medical & Behavioral Condition: Awake, Alert Need to Continue or Terminate Restraint or Seclusion: Continue Face to Face Eval of Restraint Date: 11/11/18 Face to Face Eval of Restraint Time: 02:07 <Margarita Michaud - Last Filed: 11/11/18 03:05> Medical Decision Making - Lab Data Result diagrams: 11/10/18 21:27 11/10/18 21:27 <Margarita Michaud - Last Filed: 11/11/18 03:05> - Lab Data Result diagrams: 11/10/18 21:27 11/10/18 21:27 <Ria Vale - Last Filed: 11/15/18 13:25> - Medical Decision Making Patient care was signed out to me at shift change. Patient had been resting calmly, he did complain of agitation due to what he believed was alcohol withdrawal. Patient is a complaining that the gurney in the emergency department was causing back pain. Patient was given oral Ativan as well as Tylenol 3 for his discomfort. Upon being told that he would be transferred to a psychiatric facility in [place] patient became very agitated and combative. Patient grabbed a chair and was threatening to staff with it. Patient threatening security guards asking them to fight him. Police were called. Police assisted in restraining the patient and he was administered IM Benadryl, Ativan and Haldol. Patient was then placed in hard restraints for transport. EMS transport team was given O[place]es for the restraints. The accepting physician facility was updated on the patient's behavior and still except the patient in h baudilio restraints. Restraining orders were placed in the emergency department, handwritten restraining orders were given to EMS. [id number] was completed. Patient was discharged in stable condition. (Margarita Michaud) I evaluated the patient myself. He does present with suicidal ideations with a plan to step in front of a bus. He also reports to homicidal ideations. P atient demonstrates extreme paranoid behavior. Because of this I did fill out a certification on the patient. He is currently awaiting placement (Ria Vale) - Lab Data Lab Results 11/10/18 11/10/18 11/10/18 Range/Units 20:00 21:27 21:27 WBC 11.3 H (3.8-10.6) k/uL RBC 5.03 (4.30-5.90) m/uL Hgb 15.6 (13.0-17.5) gm/dL Hct 46.8 (39.0-53.0) % MCV 93.0 (80.0-100.0) fL MCH 31.0 (25.0-35.0) pg MCHC 33.3 (31.0-37.0) g/dL RDW 12.9 (11.5-15.5) % Plt Count 340 (150-450) k/uL Neutrophils % 73 % Lymphocytes % 19 % Monocytes % 5 % Eosinophils % 2 % Basophils % 1 % Neutrophils # 8.2 H (1.3-7.7) k/uL Lymphocytes # 2.1 (1.0-4.8) k/uL Monocytes # 0.6 (0-1.0) k/uL Eosinophils # 0.2 (0-0.7) k/uL Basophils # 0.1 (0-0.2) k/uL Sodium 140 (137-145) mmol/L Potassium 4.1 (3.5-5.1) mmol/L Chloride 107 (98-107) mmol/L Carbon Dioxide 20 L (22-30) mmol/L Anion Gap 13 mmol/L BUN 16 (9-20) mg/dL Creatinine 1.21 (0.66-1.25) mg/dL Est GFR (CKD-EPI)AfAm 77 (>60 ml/min/1.73 sqM) Est GFR (CKD-EPI)NonAf 66 (>60 ml/min/1.73 sqM) Glucose 88 (74-99) mg/dL Calcium 9.8 (8.4-10.2) mg/dL Total Bilirubin 0.7 (0.2-1.3) mg/dL AST 84 H (17-59) U/L ALT 46 (21-72) U/L Alkaline Phosphatase 97 (38-126) U/L Total Protein 7.6 (6.3-8.2) g/dL Albumin 4.6 (3.5-5.0) g/dL Urine Color Yellow Urine Appearance Clear (Clear) Urine pH 5.5 (5.0-8.0) Ur Specific [place] 1.027 (1.001-1.035) Urine Protein Trace H (Negative) Urine Glucose (UA) Negative (Negative) Urine Ketones 1+ H (Negative) Urine Blood Small H (Negative) Urine Nitrite Negative (Negative) Urine Bilirubin Negative (Negative) Urine Urobilinogen <2.0 (<2.0) mg/dL Ur Leukocyte Esterase Negative (Negative) Urine RBC 6 H (0-5) /hpf Urine WBC 1 (0-5) /hpf Hyaline Casts 1 (0-2) /lpf Urine Mucus Moderate H (None) /hpf Urine Opiates Screen (NotDetected) Ur Oxycodone Screen (NotDetected) Urine Methadone Screen (NotDetected) Ur Propoxyphene Screen (NotDetected) Ur Barbiturates Screen (NotDetected) U Tricyclic Antidepress (NotDetected) Ur Phencyclidine Scrn (NotDetected) Ur Amphetamines Screen (NotDetected) U Methamphetamines Scrn (NotDetected) U Benzodiazepines Scrn (NotDetected) Urine Cocaine Screen (NotDetected) U Marijuana (THC) Screen (NotDetected) 11/10/18 Range/Units Unknown WBC (3.8-10.6) k/uL RBC (4.30-5.90) m/uL Hgb (13.0-17.5) gm/dL Hct (39.0-53.0) % MCV (80.0-100.0) fL MCH (25.0-35.0) pg MCHC (31.0-37.0) g/dL RDW (11.5-15.5) % Plt Count (150-450) k/uL Neutrophils % % Lymphocytes % % Monocytes % % Eosinophils % % Basophils % % Neutrophils # (1.3-7.7) k/uL Lymphocytes # (1.0-4.8) k/uL Monocytes # (0-1.0) k/uL Eosinophils # (0-0.7) k/uL Basophils # (0-0.2) k/uL Sodium (137-145) mmol/L Potassium (3.5-5.1) mmol/L Chloride (98-107) mmol/L Carbon Dioxide (22-30) mmol/L Anion Gap mmol/L BUN (9-20) mg/dL Creatinine (0.66-1.25) mg/dL Est GFR (CKD-EPI)AfAm (>60 ml/min/1.73 sqM) Est GFR (CKD-EPI)NonAf (>60 ml/min/1.73 sqM) Glucose (74-99) mg/dL Calcium (8.4-10.2) mg/dL Total Bilirubin (0.2-1.3) mg/dL AST (17-59) U/L ALT (21-72) U/L Alkaline Phosphatase (38-126) U/L Total Protein (6.3-8.2) g/dL Albumin (3.5-5.0) g/dL Urine Color Urine Appearance (Clear) Urine pH (5.0-8.0) Ur Specific [place] (1.001-1.035) Urine Protein (Negative) Urine Glucose (UA) (Negative) Urine Ketones (Negative) Urine Blood (Negative) Urine Nitrite (Negative) Urine Bilirubin (Negative) Urine Urobilinogen (<2.0) mg/dL Ur Leukocyte Esterase (Negative) Urine RBC (0-5) /hpf Urine WBC (0-5) /hpf Hyaline Casts (0-2) /lpf Urine Mucus (None) /hpf Urine Opiates Screen Not Detected (NotDetected) Ur Oxycodone Screen Not Detected (NotDetected) Urine Methadone Screen Not Detected (NotDetected) Ur Propoxyphene Screen Not Detected (NotDetected) Ur Barbiturates Screen Not Detected (NotDetected) U Tricyclic Antidepress Detected H (NotDetected) Ur Phencyclidine Scrn Not Detected (NotDetected) Ur Amphetamines Screen Not Detected (NotDetected) U Methamphetamines Scrn Not Detected (NotDetected) U Benzodiazepines Scrn Not Detected (NotDetected) Urine Cocaine Screen Not Detected (NotDetected) U Marijuana (THC) Screen Detected H (NotDetected) Disposition <Josue Chau - Last Filed: 11/10/18 18:59> <Margarita Michaud - Last Filed: 11/11/18 03:05> <Ria Vale - Last Filed: 11/15/18 13:25> Clinical Impression: Depression, Suicidal ideation Disposition: TRANSFER TO PSYCH HOSP/UNIT Condition: Serious Referrals: Travis Agudelo DO [Primary Care Provider] - 1-2 days
[2018-11-10 20:03] LABS: Amphetamine Screen,Urine Not Detected (NotDetected); Barbiturate Screen,Urine Not Detected (NotDetected); Benzodiazepines Screen,Urine Not Detected (NotDetected); Cocaine Screen,Urine Not Detected (NotDetected); Methadone Screen, Urine Not Detected (NotDetected); Opiate Screen,Urine Not Detected (NotDetected); Oxycodone Screen, Urine Not Detected (NotDetected); Phencyclidine Screen,Urine Not Detected (NotDetected); Tricyclic Antidepressant,Urine Detected (NotDetected); Urn Cannabinoid Scrn Detected (NotDetected)
[2018-11-10] MEDS ORDERED: LORazepam 1 MG TAB PO STA (21:10)
[2018-11-10 21:35] LABS: Basophils # (A) 0.1 k/uL (0-0.2); Basophils % (A) 1 %; Eosinophils # (A) 0.2 k/uL (0-0.7); Eosinophils % (A) 2 %; HCT 46.8 % (39.0-53.0); HGB 15.6 gm/dL (13.0-17.5); Lymphocytes # (A) 2.1 k/uL (1.0-4.8); Lymphocytes % (A) 19 %; MCHC 33.3 g/dL (31.0-37.0); Mean Platelet Volume 6.3; Monocytes # (A) 0.6 k/uL (0-1.0); Monocytes % (A) 5 %; Neutrophils # (A) 8.2 k/uL (1.3-7.7); Neutrophils % (A) 73 %; Platelet Count 340 k/uL (150-450); RBC 5.03 m/uL (4.30-5.90); RDW 12.9 % (11.5-15.5); WBC 11.3 k/uL (3.8-10.6)
[2018-11-10 21:42] LABS: Appearance,Urine Clear (Clear); Bilirubin,Urine Negative (Negative); Blood,Urine Small (Negative); Color,Urine Yellow; Glucose,Urine (UA) Negative (Negative); Hyaline Casts,Urine 1 /lpf (0-2); Ketones,Urine 1+ (Negative); Leukocyte Esterase,Urine Negative (Negative); Mucus,Urine Moderate /hpf; Nitrite,Urine Negative (Negative); PH, Urine 5.5 (5.0-8.0); Protein,Urine Trace (Negative); RBC,Urine 6 /hpf (0-5); Specific Gravity,Urine 1.027 (1.001-1.035); Urobilinogen,Urine <2.0 mg/dL (<2.0); WBC,Urine 1 /hpf (0-5)
[2018-11-10 21:44] LABS: Albumin 4.6 g/dL (3.5-5.0); Calcium 9.8 mg/dL (8.4-10.2); Potassium 4.1 mmol/L (3.5-5.1); Total Bilirubin 0.7 mg/dL (0.2-1.3); Total Protein 7.6 g/dL (6.3-8.2)
[2018-11-10] MEDS ORDERED: Acetaminophen-Codeine 300-30mg TAB PO STA (23:13)
[2018-11-10 23:14] VITALS: BP 152/90; PULSE 78
[2018-11-11] MEDS ORDERED: LORazepam 2 MG/ML INJ IM STA (01:38)
[2018-11-11] MEDS ORDERED: diphenhydrAMINE 50 MG/ML 1 ML VIAL IM STA (01:59)
[2018-11-11] MEDS ORDERED: HALOPERIDOL LACTATE 5 MG/ML 1 ML VIAL IM PRN (02:00)
== END 2018-11-11 03:32 ==
LOC: EC 18:07
DX: F32.9 Major depressive disorder, single episode, unspecified (principal); R45.851 Suicidal ideations; R45.850 Homicidal ideations; F17.200 Nicotine dependence, unspecified, uncomplicated; Z79.899 Other long term (current) drug therapy; Z88.5 Allergy status to narcotic agent
CPT/HCPCS: 82075; 36415; 80053; 85025; 81001; 80306; 99285; 96372 ×3; J2060; J1200; J1630

== ENCOUNTER 2019-06-12 11:44 | Emergency (ER) | payer OTHER ==
[2019-06-12 12:00] VITALS: TEMP 98
[2019-06-12] MEDS ORDERED: SODIUM CHLORIDE 0.9% 500 ML 500 ML IV STA (12:31)
[2019-06-12] MEDS ORDERED: ASPIRIN 81 MG PO STA (12:31)
--- NOTE | 2019-06-12 12:58 | ED ---
General Adult HPI - General Chief complaint: Arrhythmia/Palpitations Stated complaint: dizzy, heart palpitations Time Seen by Provider: 06/12/19 12:25 Source: patient, RN notes reviewed Mode of arrival: wheelchair Limitations: no limitations - History of Present Illness Initial comments: 59-year-old male with a past medical history of asthma presents to the emergency department for a chief complaint of heart palpitations. Patient states that yesterday he had some heart palpitations where he felt like his heart was racing. States this happened when he was watching TV. It lasted for a few minutes at a time. Patient felt lightheaded when it occurred but did not feel that he was going to pass out. He denies headache. He denies any symptoms at this time. Denies any significant chest pain. he denies any additional symptoms. States he has been feeling well all day. He denies any pain with this sensation. He denies shortness of breath. Patient has no other complaints at this time including shortness of breath, chest pain, abdominal pain, nausea or vomiting, headache, or visual changes. - Related Data Home Medications Medication Instructions Recorded Confirmed DULoxetine HCL [Cymbalta] 60 mg PO BID 06/12/19 06/12/19 QUEtiapine [SEROquel] 100 mg PO HS 06/12/19 06/12/19 Allergies Allergy/AdvReac Type Severity Reaction Status Date / Time meperidine HCl [From Demerol] Allergy Unknown Rash/Hives Verified 06/12/19 13:06 Review of Systems ROS Statement: Those systems with pertinent positive or pertinent negative responses have been documented in the HPI. ROS Other: All systems not noted in ROS Statement are negative. Past Medical History Past Medical History: Asthma, Musculoskeletal Disorder, Osteoarthritis (OA) Additional Past Medical History / Comment(s): asthma as child History of Any Multi-Drug Resistant Organisms: None Reported Past Surgical History: Orthopedic Surgery Additional Past Surgical History / Comment(s): left knee arthroscopy ; pain procedures Past Anesthesia/Blood Transfusion Reactions: No Reported Reaction Additional Past Anesthesia/Blood Transfusion Reaction / Comment(s): no hx blood transfusions Past Psychological History: Depression Smoking Status: Current every day smoker Past Alcohol Use History: None Reported Past Drug Use History: Marijuana - Past Family History Mother Family Medical History: No Reported History Father Family Medical History: Diabetes Mellitus General Exam Limitations: no limitations General appearance: alert, in no apparent distress Head exam: Present: atraumatic, normocephalic, normal inspection Eye exam: Present: normal appearance, PERRL, EOMI. Absent: scleral icterus, conjunctival injection, periorbital swelling ENT exam: Present: normal exam, mucous membranes moist Neck exam: Present: normal inspection, full ROM. Absent: tenderness, meningismus, lymphadenopathy Respiratory exam: Present: normal lung sounds bilaterally. Absent: respiratory distress, wheezes, rales, rhonchi, stridor Cardiovascular Exam: Present: regular rate, normal rhythm, normal heart sounds. Absent: systolic murmur, diastolic murmur, rubs, gallop, clicks Neurological exam: Present: alert (Alert, well-appearing, sitting up in bed.) Course Vital Signs 06/12/19 06/12/19 06/12/19 11:58 12:58 13:53 Temperature 98.0 F Pulse Rate 86 70 58 L Respiratory 20 18 18 Rate Blood Pressure 185/80 151/105 152/101 O2 Sat by Pulse 99 97 98 Oximetry EKG Findings - EKG Comments: EKG Findings:: Normal sinus rhythm, ventricular rate 73, appearing in the 186, QTC 442 Medical Decision Making - Medical Decision Making Vitals are stable. HPI and physical exam is documented. CBC CMP unremarkable. Troponin negative. Carotid are as negative. Patient was on the air sampling and monitoring and did not have any dysrhythmias throughout history of RSV. EKG showed a normal sinus rhythm with a ventricular rate of 73. Chest x-ray shows no acute process. Patient reevaluated continues to feel well. He will be discharged home to follow up with primary care however is directed to return if this recurs. He will also follow up with cardiology. Case was discussed with Dr. Aldana - Lab Data Result diagrams: 06/12/19 12:53 06/12/19 12:53 Lab Results 06/12/19 06/12/19 06/12/19 Range/Units 12:53 12:53 12:53 WBC 7.3 (3.8-10.6) k/uL RBC 5.02 (4.30-5.90) m/uL Hgb 15.7 (13.0-17.5) gm/dL Hct 47.1 (39.0-53.0) % MCV 93.8 (80.0-100.0) fL MCH 31.3 (25.0-35.0) pg MCHC 33.3 (31.0-37.0) g/dL RDW 12.9 (11.5-15.5) % Plt Count 285 (150-450) k/uL Neutrophils % 67 % Lymphocytes % 23 % Monocytes % 5 % Eosinophils % 2 % Basophils % 1 % Neutrophils # 4.8 (1.3-7.7) k/uL Lymphocytes # 1.7 (1.0-4.8) k/uL Monocytes # 0.4 (0-1.0) k/uL Eosinophils # 0.2 (0-0.7) k/uL Basophils # 0.1 (0-0.2) k/uL PT 10.0 (9.0-12.0) sec INR 1.0 (<1.2) APTT 25.3 (22.0-30.0) sec Sodium 137 (137-145) mmol/L Potassium 4.3 (3.5-5.1) mmol/L Chloride 107 (98-107) mmol/L Carbon Dioxide 20 L (22-30) mmol/L Anion Gap 10 mmol/L BUN 13 (9-20) mg/dL Creatinine 1.07 (0.66-1.25) mg/dL Est GFR (CKD-EPI)AfAm 89 (>60 ml/min/1.73 sqM) Est GFR (CKD-EPI)NonAf 77 (>60 ml/min/1.73 sqM) Glucose 90 (74-99) mg/dL Calcium 9.8 (8.4-10.2) mg/dL Magnesium 2.2 (1.6-2.3) mg/dL Total Bilirubin 0.6 (0.2-1.3) mg/dL AST 25 (17-59) U/L ALT 22 (4-49) U/L Alkaline Phosphatase 92 (38-126) U/L Troponin I (0.000-0.034) ng/mL Total Protein 7.7 (6.3-8.2) g/dL Albumin 4.7 (3.5-5.0) g/dL Coronavirus (PCR) (Not Detectd) 06/12/19 06/12/19 Range/Units 12:53 12:53 WBC (3.8-10.6) k/uL RBC (4.30-5.90) m/uL Hgb (13.0-17.5) gm/dL Hct (39.0-53.0) % MCV (80.0-100.0) fL MCH (25.0-35.0) pg MCHC (31.0-37.0) g/dL RDW (11.5-15.5) % Plt Count (150-450) k/uL Neutrophils % % Lymphocytes % % Monocytes % % Eosinophils % % Basophils % % Neutrophils # (1.3-7.7) k/uL Lymphocytes # (1.0-4.8) k/uL Monocytes # (0-1.0) k/uL Eosinophils # (0-0.7) k/uL Basophils # (0-0.2) k/uL PT (9.0-12.0) sec INR (<1.2) APTT (22.0-30.0) sec Sodium (137-145) mmol/L Potassium (3.5-5.1) mmol/L Chloride (98-107) mmol/L Carbon Dioxide (22-30) mmol/L Anion Gap mmol/L BUN (9-20) mg/dL Creatinine (0.66-1.25) mg/dL Est GFR (CKD-EPI)AfAm (>60 ml/min/1.73 sqM) Est GFR (CKD-EPI)NonAf (>60 ml/min/1.73 sqM) Glucose (74-99) mg/dL Calcium (8.4-10.2) mg/dL Magnesium (1.6-2.3) mg/dL Total Bilirubin (0.2-1.3) mg/dL AST (17-59) U/L ALT (4-49) U/L Alkaline Phosphatase (38-126) U/L Troponin I <0.012 (0.000-0.034) ng/mL Total Protein (6.3-8.2) g/dL Albumin (3.5-5.0) g/dL Coronavirus (PCR) Not Detected (Not Detectd) Disposition Clinical Impression: Palpitations Disposition: HOME SELF-CARE Condition: Good Instructions (If sedation given, give patient instructions): Heart Palpitations (ED) Additional Instructions: Please follow up with primary care 1-2 days. Please return to the emergency department for any worsening symptoms. Is patient prescribed a controlled substance at d/c from ED?: No Referrals: Travis Agudelo DO [Primary Care Provider] - 1-2 days Ike Li MD [STAFF PHYSICIAN] - 1-2 days Time of Disposition: 14:48
[2019-06-12 13:14] LABS: Basophils # (A) 0.1 k/uL (0-0.2); Basophils % (A) 1 %; Eosinophils # (A) 0.2 k/uL (0-0.7); Eosinophils % (A) 2 %; HCT 47.1 % (39.0-53.0); HGB 15.7 gm/dL (13.0-17.5); Lymphocytes # (A) 1.7 k/uL (1.0-4.8); Lymphocytes % (A) 23 %; MCH 31.3 pg (25.0-35.0); MCHC 33.3 g/dL (31.0-37.0); MCV 93.8 fL (80.0-100.0); Mean Platelet Volume 7.4; Monocytes # (A) 0.4 k/uL (0-1.0); Monocytes % (A) 5 %; Neutrophils # (A) 4.8 k/uL (1.3-7.7); Neutrophils % (A) 67 %; Platelet Count 285 k/uL (150-450); RBC 5.02 m/uL (4.30-5.90); RDW 12.9 % (11.5-15.5); WBC 7.3 k/uL (3.8-10.6)
[2019-06-12 13:26] LABS: Albumin 4.7 g/dL (3.5-5.0); Calcium 9.8 mg/dL (8.4-10.2); Magnesium 2.2 mg/dL (1.6-2.3); Potassium 4.3 mmol/L (3.5-5.1); Total Bilirubin 0.6 mg/dL (0.2-1.3); Total Protein 7.7 g/dL (6.3-8.2)
[2019-06-12 13:30] LABS: Partial Thromboplastin Time 25.3 sec (22.0-30.0)
--- NOTE | 2019-06-12 13:30 | XR ---
EXAMINATION TYPE: XR chest 1V portable DATE OF EXAM: 06/12/2019 COMPARISON: 06/29/2017 HISTORY: Chest pain and palpitations TECHNIQUE: Single frontal view of the chest is obtained. FINDINGS: There is no focal air space opacity, pleural effusion, or pneumothorax seen. The cardiac silhouette size is upper limits of normal size. The osseous structures are intact. IMPRESSION: No acute process.
[2019-06-12 14:46] VITALS: BP 145/95; PULSE 53; RESP 16
== END 2019-06-12 15:06 | disposition home or self-care (01) ==
LOC: EC 11:44
DX: R00.2 Palpitations (principal); R42 Dizziness and giddiness; F32.9 Major depressive disorder, single episode, unspecified; F17.200 Nicotine dependence, unspecified, uncomplicated; Z20.828 Contact with and (suspected) exposure to other viral communicable diseases; Z79.899 Other long term (current) drug therapy; Z88.5 Allergy status to narcotic agent; Z96.652 Presence of left artificial knee joint
CPT/HCPCS: 36415; 71045; 80053; 83735; 84484; 85025; 85610; 85730; 87635; 93005; 96360; 99285

== ENCOUNTER → 2019-07-18 | Outpatient (CLI) | payer OTHER ==
--- NOTE | 2019-08-21 09:37 | EM ---
EVENT MONITOR EVENT MONITOR: Patient was monitored between July 17 and August 15, 2019. The rhythm strip revealed sinus mechanism with single PVCs. There was 1 pause of 3.2 seconds that occurred during the night. Otherwise, there was no evidence of atrial fibrillation or significant bradycardia or tachycardia. ROXANA / JORDON: [id number] /
== END | disposition home or self-care (01) ==
LOC: RADECHMAIN 11:43
PROVIDERS: ATTEND Family Medicine
DX: R00.2 Palpitations (principal)
CPT/HCPCS: 93270

== ENCOUNTER → 2019-08-16 | Outpatient (CLI) | payer OTHER ==
[2019-08-16 18:32] LABS: Chol/HDL Ratio 5.71; LDL Cholesterol,Calculated 111.2 mg/dL (0.0-131.0); VLDL Calculation 53.8 mg/dL (5.00-40.00)
== END | disposition home or self-care (01) ==
LOC: LABWHC1 09:31
PROVIDERS: ATTEND Internal Medicine Clinical Cardiac Electrophysiology
DX: I10 Essential (primary) hypertension (principal); R00.2 Palpitations; E78.5 Hyperlipidemia, unspecified
CPT/HCPCS: 36415; 80061; 82533; 84439; 84443

== ENCOUNTER 2019-11-07 12:08 | Observation (INO) | payer OTHER ==
[2019-11-07] MEDS ORDERED: SODIUM CHLORIDE 0.9% 1,000 ML IV ONE (12:19)
[2019-11-07 12:25] LABS: Glucose,Whole Blood 144 mg/dL (75-99)
--- NOTE | 2019-11-07 12:27 | ED ---
Overdose HPI - General Chief Complaint: Overdose Stated Complaint: unresponsive Time Seen by Provider: 11/07/19 12:15 Source: patient, EMS Mode of arrival: EMS Limitations: no limitations - History of Present Illness Initial Comments: 59-year-old male who presents to the emergency department as an overdose. EMS provided the history as well as please. They state that he called [facility] approximately one hour prior to patient's arrival to the hospital. He states he was suicidal and he took a bunch of medications in order to harm himself. He was found unresponsive on [address] [place] bench. No signs of trauma. IV was established patient was given 4 mg of IV Narcan without improvement in his symptoms. No medications are found on the patient. Immediate HPI is limited because the patient's current obtunded state - Related Data Home Medications Medication Instructions Recorded Confirmed DULoxetine HCL [Cymbalta] 60 mg PO BID 06/12/19 11/09/19 QUEtiapine [SEROquel] 100 mg PO HS 06/12/19 11/09/19 Rosuvastatin [Crestor] 10 mg PO DAILY 11/07/19 11/09/19 Budesonide-Formot 160-4.5 Mcg 2 puff INHALATION RT-BID 11/08/19 11/09/19 [Symbicort 160-4.5 Mcg Inhaler] Previous Rx's Medication Instructions Recorded Albuterol Inhaler [Ventolin Hfa 2 puff INHALATION RT-QID PRN #1 11/08/19 Inhaler] inhaler Allergies Allergy/AdvReac Type Severity Reaction Status Date / Time meperidine HCl [From Demerol] Allergy Unknown Rash/Hives Verified 11/09/19 01:56 Review of Systems ROS Statement: Those systems with pertinent positive or pertinent negative responses have been documented in the HPI. ROS Other: All systems not noted in ROS Statement are negative. Past Medical History Past Medical History: Asthma, Musculoskeletal Disorder, Osteoarthritis (OA) Additional Past Medical History / Comment(s): asthma as child History of Any Multi-Drug Resistant Organisms: None Reported Past Surgical History: Orthopedic Surgery Additional Past Surgical History / Comment(s): left knee arthroscopy ; pain procedures Past Anesthesia/Blood Transfusion Reactions: No Reported Reaction Additional Past Anesthesia/Blood Transfusion Reaction / Comment(s): no hx blood transfusions Past Psychological History: Depression Past Alcohol Use History: None Reported Past Drug Use History: Marijuana - Past Family History Mother Family Medical History: No Reported History Father Family Medical History: Diabetes Mellitus General Exam Limitations: no limitations General appearance: obtunded Head exam: Present: atraumatic, normocephalic, normal inspection Eye exam: Present: other (4 to 3 bilaterally, sluggish ) Neck exam: Present: normal inspection. Absent: tenderness, meningismus, lymphadenopathy Respiratory exam: Present: decreased breath sounds, other (shallow respirations) Cardiovascular Exam: Present: normal rhythm, tachycardia GI/Abdominal exam: Present: soft, normal bowel sounds. Absent: distended, tenderness, guarding, rebound, rigid Extremities exam: Present: normal inspection, full ROM, normal capillary refill. Absent: tenderness, pedal edema, joint swelling, calf tenderness Neurological exam: Present: altered, other (will withdraw to painful stimuli) Skin exam: Present: dry, intact, normal color, other (cool). 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 We did to continuous pulse ox and cardiac monitoring. Patient is protecting his airway. Minimally arousable to stimuli. Gag intact. Oral pharyngeal airway placed by EMS is removed. Patient is placed on nasal cannula. Laboratory studies are obtained patient went for CT of his brain and a chest x-ray. Lab studies remarkable for a creatinine of 1.2. Urine is positive for TCAs and marijuana. CT of his brain is negative for any acute intracranial process. Chest x-ray demonstrates no acute process. Patient is observed in the emergency department for 2 hours. He does have improvement in his mentation. Patient does arouse easily with tactile stimuli. Patient continues to be nonverbal. He'll be admitted at this time for suspected overdose. I discussed case with Dr. ford who accepted admission. Patient is currently awaiting a bed on the floor - Lab Data Result diagrams: 11/08/19 06:51 11/08/19 06:51 Lab Results 11/07/19 11/07/19 11/07/19 Range/Units 12:19 12:28 12:28 WBC 8.3 (3.8-10.6) k/uL RBC 4.76 (4.30-5.90) m/uL Hgb 14.6 (13.0-17.5) gm/dL Hct 44.4 (39.0-53.0) % MCV 93.2 (80.0-100.0) fL MCH 30.8 (25.0-35.0) pg MCHC 33.0 (31.0-37.0) g/dL RDW 12.5 (11.5-15.5) % Plt Count 243 (150-450) k/uL Neutrophils % 75 % Lymphocytes % 18 % Monocytes % 5 % Eosinophils % 1 % Basophils % 0 % Neutrophils # 6.2 (1.3-7.7) k/uL Lymphocytes # 1.5 (1.0-4.8) k/uL Monocytes # 0.4 (0-1.0) k/uL Eosinophils # 0.1 (0-0.7) k/uL Basophils # 0.0 (0-0.2) k/uL PT 10.2 (9.0-12.0) sec INR 1.0 (<1.2) APTT 22.2 (22.0-30.0) sec Sodium (137-145) mmol/L Potassium (3.5-5.1) mmol/L Chloride (98-107) mmol/L Carbon Dioxide (22-30) mmol/L Anion Gap mmol/L BUN (9-20) mg/dL Creatinine (0.66-1.25) mg/dL Est GFR (CKD-EPI)AfAm (>60 ml/min/1.73 sqM) Est GFR (CKD-EPI)NonAf (>60 ml/min/1.73 sqM) Glucose (74-99) mg/dL POC Glucose (mg/dL) 144 H (75-99) mg/dL POC Glu Medical Affairs Specialist ID June Cárdenas Calcium (8.4-10.2) mg/dL Total Bilirubin (0.2-1.3) mg/dL AST (17-59) U/L ALT (4-49) U/L Alkaline Phosphatase (38-126) U/L Ammonia (<30) umol/L Creatine Kinase (55-170) U/L Troponin I (0.000-0.034) ng/mL Total Protein (6.3-8.2) g/dL Albumin (3.5-5.0) g/dL Urine Color Urine Appearance (Clear) Urine pH (5.0-8.0) Ur Specific [place] (1.001-1.035) Urine Protein (Negative) Urine Glucose (UA) (Negative) Urine Ketones (Negative) Urine Blood (Negative) Urine Nitrite (Negative) Urine Bilirubin (Negative) Urine Urobilinogen (<2.0) mg/dL Ur Leukocyte Esterase (Negative) Urine RBC (0-5) /hpf Urine WBC (0-5) /hpf Hyaline Casts (0-2) /lpf Urine Mucus (None) /hpf Salicylates mg/dL Urine Opiates Screen (NotDetected) Ur Oxycodone Screen (NotDetected) Urine Methadone Screen (NotDetected) Ur Propoxyphene Screen (NotDetected) Acetaminophen ug/mL Ur Barbiturates Screen (NotDetected) U Tricyclic Antidepress (NotDetected) Ur Phencyclidine Scrn (NotDetected) Ur Amphetamines Screen (NotDetected) U Methamphetamines Scrn (NotDetected) U Benzodiazepines Scrn (NotDetected) Urine Cocaine Screen (NotDetected) U Marijuana (THC) Screen (NotDetected) Serum Alcohol mg/dL 11/07/19 11/07/19 11/07/19 Range/Units 12:28 12:28 12:28 WBC (3.8-10.6) k/uL RBC (4.30-5.90) m/uL Hgb (13.0-17.5) gm/dL Hct (39.0-53.0) % MCV (80.0-100.0) fL MCH (25.0-35.0) pg MCHC (31.0-37.0) g/dL RDW (11.5-15.5) % Plt Count (150-450) k/uL Neutrophils % % Lymphocytes % % Monocytes % % Eosinophils % % Basophils % % Neutrophils # (1.3-7.7) k/uL Lymphocytes # (1.0-4.8) k/uL Monocytes # (0-1.0) k/uL Eosinophils # (0-0.7) k/uL Basophils # (0-0.2) k/uL PT (9.0-12.0) sec INR (<1.2) APTT (22.0-30.0) sec Sodium 139 (137-145) mmol/L Potassium 3.5 (3.5-5.1) mmol/L Chloride 110 H (98-107) mmol/L Carbon Dioxide 19 L (22-30) mmol/L Anion Gap 10 mmol/L BUN 14 (9-20) mg/dL Creatinine 1.28 H (0.66-1.25) mg/dL Est GFR (CKD-EPI)AfAm 71 (>60 ml/min/1.73 sqM) Est GFR (CKD-EPI)NonAf 61 (>60 ml/min/1.73 sqM) Glucose 154 H (74-99) mg/dL POC Glucose (mg/dL) (75-99) mg/dL POC Glu Medical Affairs Specialist ID Calcium 9.0 (8.4-10.2) mg/dL Total Bilirubin 0.6 (0.2-1.3) mg/dL AST 22 (17-59) U/L ALT 18 (4-49) U/L Alkaline Phosphatase 87 (38-126) U/L Ammonia (<30) umol/L Creatine Kinase 140 (55-170) U/L Troponin I <0.012 (0.000-0.034) ng/mL Total Protein 6.4 (6.3-8.2) g/dL Albumin 4.0 (3.5-5.0) g/dL Urine Color Light Yellow Urine Appearance Clear (Clear) Urine pH 5.5 (5.0-8.0) Ur Specific [place] 1.010 (1.001-1.035) Urine Protein Trace H (Negative) Urine Glucose (UA) Negative (Negative) Urine Ketones 1+ H (Negative) Urine Blood Small H (Negative) Urine Nitrite Negative (Negative) Urine Bilirubin Negative (Negative) Urine Urobilinogen <2.0 (<2.0) mg/dL Ur Leukocyte Esterase Negative (Negative) Urine RBC 3 (0-5) /hpf Urine WBC <1 (0-5) /hpf Hyaline Casts 5 H (0-2) /lpf Urine Mucus Rare H (None) /hpf Salicylates <1.0 mg/dL Urine Opiates Screen Not Detected (NotDetected) Ur Oxycodone Screen Not Detected (NotDetected) Urine Methadone Screen Not Detected (NotDetected) Ur Propoxyphene Screen Not Detected (NotDetected) Acetaminophen <10.0 ug/mL Ur Barbiturates Screen Not Detected (NotDetected) U Tricyclic Antidepress Detected H (NotDetected) Ur Phencyclidine Scrn Not Detected (NotDetected) Ur Amphetamines Screen Not Detected (NotDetected) U Methamphetamines Scrn Not Detected (NotDetected) U Benzodiazepines Scrn Not Detected (NotDetected) Urine Cocaine Screen Not Detected (NotDetected) U Marijuana (THC) Screen Detected H (NotDetected) Serum Alcohol <10 mg/dL 11/07/19 Range/Units 12:28 WBC (3.8-10.6) k/uL RBC (4.30-5.90) m/uL Hgb (13.0-17.5) gm/dL Hct (39.0-53.0) % MCV (80.0-100.0) fL MCH (25.0-35.0) pg MCHC (31.0-37.0) g/dL RDW (11.5-15.5) % Plt Count (150-450) k/uL Neutrophils % % Lymphocytes % % Monocytes % % Eosinophils % % Basophils % % Neutrophils # (1.3-7.7) k/uL Lymphocytes # (1.0-4.8) k/uL Monocytes # (0-1.0) k/uL Eosinophils # (0-0.7) k/uL Basophils # (0-0.2) k/uL PT (9.0-12.0) sec INR (<1.2) APTT (22.0-30.0) sec Sodium (137-145) mmol/L Potassium (3.5-5.1) mmol/L Chloride (98-107) mmol/L Carbon Dioxide (22-30) mmol/L Anion Gap mmol/L BUN (9-20) mg/dL Creatinine (0.66-1.25) mg/dL Est GFR (CKD-EPI)AfAm (>60 ml/min/1.73 sqM) Est GFR (CKD-EPI)NonAf (>60 ml/min/1.73 sqM) Glucose (74-99) mg/dL POC Glucose (mg/dL) (75-99) mg/dL POC Glu Medical Affairs Specialist ID Calcium (8.4-10.2) mg/dL Total Bilirubin (0.2-1.3) mg/dL AST (17-59) U/L ALT (4-49) U/L Alkaline Phosphatase (38-126) U/L Ammonia <9 (<30) umol/L Creatine Kinase (55-170) U/L Troponin I (0.000-0.034) ng/mL Total Protein (6.3-8.2) g/dL Albumin (3.5-5.0) g/dL Urine Color Urine Appearance (Clear) Urine pH (5.0-8.0) Ur Specific [place] (1.001-1.035) Urine Protein (Negative) Urine Glucose (UA) (Negative) Urine Ketones (Negative) Urine Blood (Negative) Urine Nitrite (Negative) Urine Bilirubin (Negative) Urine Urobilinogen (<2.0) mg/dL Ur Leukocyte Esterase (Negative) Urine RBC (0-5) /hpf Urine WBC (0-5) /hpf Hyaline Casts (0-2) /lpf Urine Mucus (None) /hpf Salicylates mg/dL Urine Opiates Screen (NotDetected) Ur Oxycodone Screen (NotDetected) Urine Methadone Screen (NotDetected) Ur Propoxyphene Screen (NotDetected) Acetaminophen ug/mL Ur Barbiturates Screen (NotDetected) U Tricyclic Antidepress (NotDetected) Ur Phencyclidine Scrn (NotDetected) Ur Amphetamines Screen (NotDetected) U Methamphetamines Scrn (NotDetected) U Benzodiazepines Scrn (NotDetected) Urine Cocaine Screen (NotDetected) U Marijuana (THC) Screen (NotDetected) Serum Alcohol mg/dL - EKG Data EKG Comments: EKG demonstrates a sinus tachycardia with a ventricular rate of 132. SD interval 120. QRS 96. QTC of 521. Prolonged QTC. No acute ST segment elevations or depressions. Disposition Clinical Impression: Suicide attempt by multiple drug overdose, Major depressive disorder, recurrent episode, severe Disposition: ADMITTED IP TO THIS [facility] Condition: Serious Is patient prescribed a controlled substance at d/c from ED?: No Decision to Admit Reason: Admit from EC Decision Date: 11/07/19 Decision Time: 13:30
[2019-11-07 12:40] LABS: Basophils % (A) 0 %; Eosinophils # (A) 0.1 k/uL (0-0.7); Eosinophils % (A) 1 %; HCT 44.4 % (39.0-53.0); HGB 14.6 gm/dL (13.0-17.5); Lymphocytes # (A) 1.5 k/uL (1.0-4.8); Lymphocytes % (A) 18 %; MCH 30.8 pg (25.0-35.0); MCV 93.2 fL (80.0-100.0); Mean Platelet Volume 6.9; Monocytes # (A) 0.4 k/uL (0-1.0); Monocytes % (A) 5 %; Neutrophils # (A) 6.2 k/uL (1.3-7.7); Neutrophils % (A) 75 %; Platelet Count 243 k/uL (150-450); RBC 4.76 m/uL (4.30-5.90); RDW 12.5 % (11.5-15.5); WBC 8.3 k/uL (3.8-10.6)
[2019-11-07 12:47] LABS: Appearance,Urine Clear (Clear); Bilirubin,Urine Negative (Negative); Blood,Urine Small (Negative); Color,Urine Light Yellow; Glucose,Urine (UA) Negative (Negative); Hyaline Casts,Urine 5 /lpf (0-2); Ketones,Urine 1+ (Negative); Leukocyte Esterase,Urine Negative (Negative); Mucus,Urine Rare /hpf; Nitrite,Urine Negative (Negative); PH, Urine 5.5 (5.0-8.0); Protein,Urine Trace (Negative); RBC,Urine 3 /hpf (0-5); Urobilinogen,Urine <2.0 mg/dL (<2.0); WBC,Urine <1 /hpf (0-5)
[2019-11-07 12:49] LABS: Partial Thromboplastin Time 22.2 sec (22.0-30.0); Prothrombin Time 10.2 sec (9.0-12.0)
[2019-11-07 12:52] LABS: Amphetamine Screen,Urine Not Detected (NotDetected); Barbiturate Screen,Urine Not Detected (NotDetected); Benzodiazepines Screen,Urine Not Detected (NotDetected); Cocaine Screen,Urine Not Detected (NotDetected); Methadone Screen, Urine Not Detected (NotDetected); Opiate Screen,Urine Not Detected (NotDetected); Oxycodone Screen, Urine Not Detected (NotDetected); Phencyclidine Screen,Urine Not Detected (NotDetected); Tricyclic Antidepressant,Urine Detected (NotDetected); Urn Cannabinoid Scrn Detected (NotDetected)
[2019-11-07 13:00] LABS: ALT 18 U/L (4-49); AST 22 U/L (17-59); Acetaminophen <10.0 ug/mL; African American GFR (CKD) 71 (>60 ml/min/1.73 sqM); Alcohol <10 mg/dL; Alkaline Phosphatase 87 U/L (38-126); Anion Gap 10 mmol/L; Blood Urea Nitrogen 14 mg/dL (9-20); Carbon Dioxide 19 mmol/L (22-30); Chloride 110 mmol/L (98-107); Creatine Kinase 140 U/L (55-170); Glucose 154 mg/dL (74-99); Non-African American GFR(CKD) 61 (>60 ml/min/1.73 sqM); Potassium 3.5 mmol/L (3.5-5.1); Salicylate <1.0 mg/dL; Sodium 139 mmol/L (137-145); Total Bilirubin 0.6 mg/dL (0.2-1.3); Total Protein 6.4 g/dL (6.3-8.2)
--- NOTE | 2019-11-07 13:04 | XR ---
EXAMINATION TYPE: XR chest 1V portable DATE OF EXAM: 11/07/2019 COMPARISON: 06/12/2019 HISTORY: Unresponsive TECHNIQUE: Single frontal view of the chest is obtained. FINDINGS: Limited inspiration. No obvious consolidation or pneumothorax. Assessment of the interstit ium limited by reduced inspiration. No obvious pleural fluid. Arthropathy of the shoulders. IMPRESSION: 1. Limited exam demonstrates no definite acute process.
--- NOTE | 2019-11-07 13:22 | CT ---
EXAMINATION TYPE: CT brain wo con DATE OF EXAM: 11/07/2019 COMPARISON: None INDICATION: AMS DLP: 1082.4 mGycm, Automated exposure control for dose reduction was used. CONTRAST: None CT of the brain is performed utilizing 3 mm thick sections through the posterior fossa and 3 mm thick sections through the remaining calvarium. Study is performed within 24 hours of arrival to the hosp ital. No abnormal hyperdensity is present to suggest an acute intracranial hemorrhage. No mass lesion is evident. No acute infarcts are evident. Ventricles and sulci are appropriate for the patient age. There is an air-fluid level within the sphenoid sinus. Some mucosal thickenings within the left sphen oid sinus. IMPRESSIONS: 1. Clinical correlation recommended for acute sphenoid sinusitis. 2. No acute intracranial process.
[2019-11-07] MEDS ORDERED: NALOXONE 0.4 MG/ML 1 ML VIAL IV PRN (13:30)
--- NOTE | 2019-11-07 14:38 | P.HPIM ---
History of Present Illness 59-year-old male who presents to the emergency department as an overdose. History was obtain from ER physician. They state that he called [facility] approximately one hour prior to patient's arrival to the hospital. He states he was suicidal and he took a bunch of medications in order to harm himself. He was found unresponsive on [address] [place] bench. No signs of trauma. IV was established patient was given 4 mg of IV Narcan without improvement in his symptoms. No medications are found on the patient. Patient was initially obtu nded but arousable now to verbal stimuli.. Patient is drowsy and was unable to provide any history to me. Patient had an EKG which did show prolonged QT.. Urine drug screen did show marijuana and tricyclic antidepressants. Patient had mild acute renal failure Review of Systems Unable to obtain due to his clinical condition Past Medical History Past Medical History: Asthma, Musculoskeletal Disorder, Osteoarthritis (OA) Additional Past Medical History / Comment(s): asthma as child History of Any Multi-Drug Resistant Organisms: None Reported Past Surgical History: Orthopedic Surgery Additional Past Surgical History / Comment(s): left knee arthroscopy ; pain procedures Past Anesthesia/Blood Transfusion Reactions: No Reported Reaction Additional Past Anesthesia/Blood Transfusion Reaction / Comment(s): no hx blood transfusions Past Psychological History: Depression Past Alcohol Use History: None Reported Past Drug Use History: Marijuana - Past Family History Mother Family Medical History: No Reported History Father Family Medical History: Diabetes Mellitus Medications and Allergies Home Medications Medication Instructions Recorded Confirmed Type DULoxetine HCL [Cymbalta] 60 mg PO BID 06/12/19 11/07/19 History QUEtiapine [SEROquel] 100 mg PO HS 06/12/19 11/07/19 History Rosuvastatin [Crestor] 10 mg PO DAILY 11/07/19 11/07/19 History Allergies Allergy/AdvReac Type Severity Reaction Status Date / Time meperidine HCl [From Demerol] Allergy Unknown Rash/Hives Verified 11/07/19 12:25 Physical Exam Vitals: Vital Signs Temp Pulse Resp BP Pulse Ox 11/07/19 12:16 98.0 F 130 H 14 128/69 98 Intake and Output 11/06/19 11/07/19 11/07/19 22:59 06:59 14:59 Other: Weight 95.254 kg PHYSICAL EXAMINATION: GENERAL: Drowsy arousable HEENT: Pupils are round and equally reacting to light. EOMI. No scleral icterus. No conjunctival pallor. Normocephalic, atraumatic. No pharyngeal erythema. No thyromegaly. CARDIOVASCULAR: S1 and S2 present. No murmurs, rubs, or gallops. PULMONARY: Unable to assess as patient is not following commands. ABDOMEN: Soft, nontender, nondistended, normoactive bowel sounds. No palpable organomegaly. MUSCULOSKELETAL: No joint swelling or deformity. EXTREMITIES: No cyanosis, clubbing, or pedal edema. NEUROLOGICAL: Unable to assess patient is excessively drowsy arousable SKIN: No rashes. Results CBC & Chem 7: 11/07/19 12:28 11/07/19 12:28 Labs: Abnormal Lab Results - Last 24 Hours (Table) 11/07/19 11/07/19 11/07/19 Range/Units 12:19 12:28 12:28 Chloride 110 H (98-107) mmol/L Carbon Dioxide 19 L (22-30) mmol/L Creatinine 1.28 H (0.66-1.25) mg/dL Glucose 154 H (74-99) mg/dL POC Glucose (mg/dL) 144 H (75-99) mg/dL Urine Protein Trace H (Negative) Urine Ketones 1+ H (Negative) Urine Blood Small H (Negative) Hyaline Casts 5 H (0-2) /lpf Urine Mucus Rare H (None) /hpf U Tricyclic Antidepress Detected H (NotDetected) U Marijuana (THC) Screen Detected H (NotDetected) Assessment and Plan Plan: -Major depression possible suicide attempt and suicidal ideations: Patient may have overdosed on Seroquel. Patient will be monitored closely on threat monitoring analyst QT. Patient is presently QTc is presently 550 ms. Patient will have a one-on-one sitter and psychiatry was consulted -Acute renal failure most probably prerenal azotemia patient will be continued on IV fluids will recheck the creatinine tomorrow -Hyperlipidemia -Tachycardia: Secondary to overdose monitoring as mentioned above -Hyperchloremic non-gap metabolic acidosis -Depression: Seroquel and Cymbalta will be held DVT prophylaxis heparin and GI prophylaxis Pepcid
[2019-11-07] MEDS: SODIUM CHLORIDE 0.9% 1,000 ML IV SCH ×2 (15:16→23:39)
[2019-11-07] MEDS: FAMOTIDINE 20 MG TAB PO SCH (21:15)
[2019-11-07] MEDS: HEPARIN SODIUM,PORCINE 5,000 UNIT/ML 1 ML VIAL SQ SCH ×2 (21:17→23:40)
[2019-11-08 07:34] LABS: Albumin 3.4 g/dL (3.5-5.0); Calcium 8.8 mg/dL (8.4-10.2); Potassium 3.9 mmol/L (3.5-5.1); Total Bilirubin 0.6 mg/dL (0.2-1.3); Total Protein 5.7 g/dL (6.3-8.2)
[2019-11-08 07:58] LABS: Basophils % (A) 0 %; Eosinophils # (A) 0.1 k/uL (0-0.7); Eosinophils % (A) 1 %; HCT 39.2 % (39.0-53.0); HGB 13.1 gm/dL (13.0-17.5); Lymphocytes # (A) 1.1 k/uL (1.0-4.8); Lymphocytes % (A) 14 %; MCH 31.2 pg (25.0-35.0); MCHC 33.5 g/dL (31.0-37.0); MCV 93.2 fL (80.0-100.0); Mean Platelet Volume 7.4; Monocytes # (A) 0.4 k/uL (0-1.0); Monocytes % (A) 5 %; Neutrophils # (A) 6.3 k/uL (1.3-7.7); Neutrophils % (A) 78 %; Platelet Count 230 k/uL (150-450); RBC 4.21 m/uL (4.30-5.90); RDW 12.3 % (11.5-15.5)
[2019-11-08] MEDS: HEPARIN SODIUM,PORCINE 5,000 UNIT/ML 1 ML VIAL SQ SCH ×2 (09:05→09:09)
[2019-11-08] MEDS: FAMOTIDINE 20 MG TAB PO SCH ×2 (09:05→09:09)
[2019-11-08] MEDS: ATORVASTATIN 20 MG TAB PO SCH ×2 (09:05→09:09)
[2019-11-08] MEDS: SODIUM CHLORIDE 0.9% 1,000 ML IV SCH ×2 (09:10→14:15)
--- NOTE | 2019-11-08 11:37 | CDI ---
Documentation Clarification Form Date: 11/08/2019 10:55:00 AM From: Christie Hart RN, CCDS Admit Date: 11/07/2019 01:30:00 PM Patient Name: Benedict Mondragon Visit Number: [id number] Discharge Date: ATTENTION: The Clinical Documentation Specialists (CDI) and [facility] Coding Staff appreciate your assistance in clarifying documentation. Please respond to the clarification below the line at the bottom and electronically sign. The CDI & [facility] Coding staff will review the response and follow-up if needed. Please note: Queries are made part of the Legal Health Record. If you have any questions, please contact the author of this message via ITS. Dr. Sharla Gallego Altered Mental Status was documented in the ED assessment and in the H/P with positive urine drug screen. Please provide your clinical impression for the etiology of the mental status change. History/Risk Factors: Asthma as child, Depression Clinical Indicators: 59-year-old male presented to ED via EMS, found unresponsive in an obtunded state on [address] [place] bench. In ED he was protecting his airway. Minimally arousable to stimuli. Patient is observed in ED for 2 hours. He does have improvement in his mentation. He arouse easily with tactile stimuli. He continues to be nonverbal. He is admitted for suspected overdose. 11/06 Vital signs 128/69 130 14 98% RA 11/06 CT brain: Negative for any acute intracranial process 11/06 CXR: no acute process 11/06 Labs: WBC 8.3, Creatinine 1.28 UDS: positive for Tricyclic Antidepressents, Marijuana 11/06 EKG: Sinus tachycardia with vent rate of 132. Prolonged QT Treatment: Telemetry Monitoring Psychiatry consult: Pending One-on-one sitter (suicide precautions) Neurological assessment per protocol Hold Seroquel and Cymbalta .9NS 1,000 mls bolus .9NS @ 100 mls/hr In your professional opinion, please clarify the etiology of the Altered Mental Status, if known. Toxic Encephalopathy Other condition (please specify) Unable to determine (Last Revision: May 2017) Toxic Encephalopathy MTDD
[2019-11-08] MEDS: IPRATROPIUM-ALBUTEROL 3 ML NEB INHALATION SCH ×3 (12:59→20:12)
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
[2019-11-08] MEDS ORDERED: FLUoxetine HCL 20 MG CAP PO SCH (13:45)
--- NOTE | 2019-11-08 13:47 | P.DS ---
Providers Date of admission: 11/07/19 13:30 Attending physician: Sasha Pepper Consults: 11/07/19 13:32 Consult Physician Urgent Consulting Provider: Dylon Marinelli Consult Reason/Comments: acute intentional overdose, suicide attempt Do you want consulting provider notified?: Yes Primary care physician: Stated None Hospital Course: Patient is a pleasant 59-year-old male was admitted yesterday after he attempted suicide and was unable to get any history from him yesterday. I'm able to get history from him today. Patient admits to suicidal ideations as today may and does have depression patient is still present willing to go to psychiatric floor patient presently has a sitter. Patient admits to overdosing on Cymbalta, Seroquel and some sleeping pills he has at home. Patient does have some wheez ing on exam does smoke. Patient will be discharged on Symbicort and albuterol. Patient had prolonged QT which resolved at this time. Patient does have mild tremor from excess SSRI probably. Patient is medically stable to be discharged to psychiatric floor. Patient is willing to go to psychiatric floor. PHYSICAL EXAMINATION: GENERAL: The patient is alert and oriented x3, not in any acute distress. Well developed, well nourished. HEENT: Pupils are round and equally reacting to light. EOMI. No scleral icterus. No conjunctival pallor. Normocephalic, atraumatic. No pharyngeal erythema. No thyromegaly. CARDIOVASCULAR: S1 and S2 present. No murmurs, rubs, or gallops. PULMONARY: Chest is clear to auscultation, no wheezing or crackles. ABDOMEN: Soft, nontender, nondistended, normoactive bowel sounds. No palpable organomegaly. MUSCULOSKELETAL: No joint swelling or deformity. EXTREMITIES: No cyanosis, clubbing, or pedal edema. NEUROLOGICAL: Gross neurological examination did not reveal any focal deficits. SKIN: No rashes. -Major depression and suicide attempt drug overdose -Toxic encephalopathy from her goal dose -Acute renal failure prerenal azotemia improved with IV fluids -Hyperlipidemia -Tachycardia secondary to drug overdose resolved -Metabolic acidosis resolved Patient is medically stable to go to psychiatric floor. Patient Condition at Discharge: Serious Plan - Discharge Summary Discharge Rx Participant: No New Discharge Prescriptions: New Budesonide-Formot 160-4.5 Mcg [Symbicort 160-4.5 Mcg Inhaler] 2 puff INHALATION BID #1 inhaler Albuterol Inhaler [Ventolin Hfa Inhaler] 2 puff INHALATION RT-QID PRN #1 inhaler PRN Reason: Shortness Of Breath Or Wheezing Continue QUEtiapine [SEROquel] 100 mg PO HS DULoxetine HCL [Cymbalta] 60 mg PO BID Rosuvastatin [Crestor] 10 mg PO DAILY Discharge Medication List DULoxetine HCL [Cymbalta] 60 mg PO BID 06/12/19 [History] QUEtiapine [SEROquel] 100 mg PO HS 06/12/19 [History] Rosuvastatin [Crestor] 10 mg PO DAILY 11/07/19 [History] Albuterol Inhaler [Ventolin Hfa Inhaler] 2 puff INHALATION RT-QID PRN #1 inhaler 11/08/19 [Rx] Budesonide-Formot 160-4.5 Mcg [Symbicort 160-4.5 Mcg Inhaler] 2 puff INHALATION BID #1 inhaler 11/08/19 [Rx] Discharge Disposition: TRANSFER TO PSYCH HOSP/UNIT
[2019-11-08 21:00] VITALS: BP 148/73; PULSE 72; RESP 16; TEMP 97.6
[2019-11-08] MEDS ORDERED: OLANZapine 5 MG TAB PO SCH (21:00)
== END 2019-11-08 22:41 ==
LOC: EC 12:08 → 3SCARD 13:30 → INTOOBSV 13:30 → 3SCARD 18:00 → UNDODISIN 11-08 22:41
PROVIDERS: ADMIT Hospitalist; ATTEND Hospitalist
DX: F33.2 Major depressive disorder, recurrent severe without psychotic features (principal); T43.212A Poisoning by selective serotonin and norepinephrine reuptake inhibitors, intentional self-harm, initial encounter; T43.592A Poisoning by other antipsychotics and neuroleptics, intentional self-harm, initial encounter; T45.0X2A Poisoning by antiallergic and antiemetic drugs, intentional self-harm, initial encounter; J45.909 Unspecified asthma, uncomplicated; M19.90 Unspecified osteoarthritis, unspecified site; R94.31 Abnormal electrocardiogram [ECG] [EKG]; N17.9 Acute kidney failure, unspecified; E78.5 Hyperlipidemia, unspecified; R00.0 Tachycardia, unspecified; E87.2 Acidosis; F41.9 Anxiety disorder, unspecified; F17.210 Nicotine dependence, cigarettes, uncomplicated; R25.1 Tremor, unspecified; E87.8 Other disorders of electrolyte and fluid balance, not elsewhere classified; G92 Toxic encephalopathy; Z79.899 Other long term (current) drug therapy; Z79.51 Long term (current) use of inhaled steroids; Z88.5 Allergy status to narcotic agent; Z56.0 Unemployment, unspecified; Z83.3 Family history of diabetes mellitus
CPT/HCPCS: 96361; 96372 ×2; 96360; 99285; 36415; 94640 ×2; 93005; 80053 ×2; 82140; 82550; 84484; 85025 ×2; 85610; 85730; 81001; 80306; 83520; 71045; 70450; G0378 ×2; G0480 ×2; J1644 ×2; 80320; 80329

== ENCOUNTER 2019-11-08 22:44 | Inpatient (IN) | payer MEDICAID ==
[2019-11-08] MEDS ORDERED: MAG HYDROX/AL HYDROX/SIMETH 30 ML CUP PO PRN (22:59)
[2019-11-08] MEDS ORDERED: MAGNESIUM HYDROXIDE 2,400 MG/10 ML CUP PO PRN (22:59)
[2019-11-08] MEDS ORDERED: LORazepam 1 MG TAB PO PRN (22:59)
[2019-11-09] MEDS ORDERED: LORazepam 2 MG/ML INJ IM PRN (00:30)
[2019-11-09] MEDS ORDERED: ZIPRASIDONE 20 MG VIAL IM PRN (01:00)
[2019-11-09] MEDS ORDERED: FLUoxetine HCL 20 MG CAP PO STA (10:34)
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
[2019-11-09 13:08] LABS: ALT 19 U/L (4-49); AST 28 U/L (17-59); African American GFR (CKD) >90 (>60 ml/min/1.73 sqM); Albumin 4.1 g/dL (3.5-5.0); Alkaline Phosphatase 77 U/L (38-126); Anion Gap 6 mmol/L; Blood Urea Nitrogen 11 mg/dL (9-20); Calcium 9.3 mg/dL (8.4-10.2); Carbon Dioxide 24 mmol/L (22-30); Chloride 110 mmol/L (98-107); Cholesterol 157 mg/dL (<200); Glucose 79 mg/dL (74-99); HDL Cholesterol 43 mg/dL (40-60); LDL Cholesterol,Calculated 98 mg/dL (0-99); Non-African American GFR(CKD) 78 (>60 ml/min/1.73 sqM); Potassium 4.1 mmol/L (3.5-5.1); Sodium 140 mmol/L (137-145); Total Bilirubin 0.6 mg/dL (0.2-1.3); Total Protein 6.6 g/dL (6.3-8.2); Triglycerides 82 mg/dL (<150)
[2019-11-09 13:15] LABS: Basophils % (A) 1 %; Eosinophils # (A) 0.2 k/uL (0-0.7); Eosinophils % (A) 3 %; HCT 43.8 % (39.0-53.0); HGB 14.7 gm/dL (13.0-17.5); Lymphocytes # (A) 1.3 k/uL (1.0-4.8); Lymphocytes % (A) 21 %; MCH 31.1 pg (25.0-35.0); MCHC 33.7 g/dL (31.0-37.0); MCV 92.3 fL (80.0-100.0); Mean Platelet Volume 7.1; Monocytes # (A) 0.3 k/uL (0-1.0); Monocytes % (A) 5 %; Neutrophils # (A) 4.1 k/uL (1.3-7.7); Neutrophils % (A) 69 %; Platelet Count 278 k/uL (150-450); RBC 4.75 m/uL (4.30-5.90)
[2019-11-09 19:13] LABS: Hemoglobin A1C 5.6 % (4.0-6.0)
[2019-11-09] MEDS ORDERED: OLANZapine 5 MG TAB PO SCH (21:00)
--- NOTE | 2019-11-09 21:16 | P.MDCNMH ---
History of Present Illness H&P Date: 11/09/19 Chief Complaint: Suicide attempt. Patient is a 59-year-old male with a known history of asthma, osteoarthritis, depression and history of marijuana use was initially presents to ER on 11/07/2019 after he attempted suicide. Patient was seen by psychiatry and recommended inpatient psychiatric unit transfer. Patient is currently awake alert oriented x3. Denied any suicidal or homicidal ideation. No complaints of chest pain or shortness of breath. No nausea vomiting or abdominal pain. No dizziness or lightheadedness. Review of Systems Constitutional: Patient denies any fever or chills . No generalized weakness or weight loss. Abdomen: Patient denied nausea vomiting and diarrhea and abdominal pain. Cardiovascular: Patient denies any chest pain or short of breath no palpitations. Respiratory: patient denied any cough or sputum production. No shortness of breath Neurologic: Patient denied any numbness or tingling headache. Musculoskeletal: Patient denies any complaints of joint swelling or deformity. Skin: Negative Psychiatric: Negative Endocrine: No heat or cold intolerance. No recent weight gain. Genitourinary: No dysuria or hematuria. All other 14 point ROS negative except the above Past Medical History Past Medical History: Asthma, Musculoskeletal Disorder, Osteoarthritis (OA) Additional Past Medical History / Comment(s): asthma as child History of Any Multi-Drug Resistant Organisms: None Reported Past Surgical History: Orthopedic Surgery Additional Past Surgical History / Comment(s): left knee arthroscopy ; pain procedures Past Anesthesia/Blood Transfusion Reactions: No Reported Reaction Additional Past Anesthesia/Blood Transfusion Reaction / Comment(s): no hx blood transfusions Past Psychological History: Depression Past Alcohol Use History: None Reported Past Drug Use History: Marijuana - Past Family History Mother Family Medical History: No Reported History Father Family Medical History: Diabetes Mellitus Medications and Allergies Home Medications Medication Instructions Recorded Confirmed Type DULoxetine HCL [Cymbalta] 60 mg PO BID 06/12/19 11/09/19 History QUEtiapine [SEROquel] 100 mg PO HS 06/12/19 11/09/19 History Rosuvastatin [Crestor] 10 mg PO DAILY 11/07/19 11/09/19 History Albuterol Inhaler [Ventolin Hfa 2 puff INHALATION RT-QID PRN #1 11/08/19 11/09/19 Rx Inhaler] inhaler Budesonide-Formot 160-4.5 Mcg 2 puff INHALATION RT-BID 11/08/19 11/09/19 History [Symbicort 160-4.5 Mcg Inhaler] Allergies Allergy/AdvReac Type Severity Reaction Status Date / Time meperidine HCl [From Demerol] Allergy Unknown Rash/Hives Verified 11/09/19 01:56 Physical Exam Vitals: Vital Signs Temp Pulse Resp BP Pulse Ox 11/08/19 23:05 97.8 F 92 18 145/85 95 Intake and Output 11/08/19 11/09/19 11/09/19 22:59 06:59 14:59 Other: Weight 104.2 kg 97.8 kg PHYSICAL EXAMINATION: Patient is lying in the bed comfortably, no acute distress, awake alert and oriented.. HEENT: Normocephalic. Neck is supple. Pupils reactive. Nostrils clear. Oral cavity is moist. Ears reveal no drainage. Neck reveals no JVD, carotid bruits, or thyromegaly. CHEST EXAMINATION: Trachea is central. Symmetrical expansion. Lung felix clear to auscultation and percussion. CARDIAC: Normal S1, S2 with no gallops. No murmurs ABDOMEN: Soft. Bowel sounds normal. No organomegaly. No abdominal bruits. Extremities: reveal no edema. No clubbing or cyanosis Neurologically awake, alert, oriented x3 with well-coordinated movements. No focal deficits noted Skin: No rash or skin lesions. Psychiatric: Coperative. Nonsuicidal Musculoskeletal: No joint swelling or deformity. Normal range of motion. Cranial Nerve Examination - Cranial Nerves Cranial Nerve I- Olfactory: Intact Cranial Nerve II- Optic: Intact Cranial Nerve III- Oculomotor: Intact Cranial Nerve IV- Trochlear: Intact Cranial Nerve V- Trigeminal: Intact Cranial Nerve - Abducens: Intact Cranial Nerve VII- Facial: Intact Cranial Nerve VIII- Auditory: Intact Cranial Nerve IX- Glossopharyngeal: Intact Cranial Nerve X- Vagus: Intact Cranial Nerve XI- Accessory: Intact Cranial Nerve XII- Hypoglossal: Intact Results CBC & Chem 7: 11/09/19 11:41 11/09/19 11:41 Assessment and Plan Assessment: Major depression and suicidal attempt with drug overdose. Anxiety/depression Toxic encephalopathy due to drug overdose resolved now. Acute kidney injury prerenal improved now Hyperlipidemia Osteoarthritis Asthma stable not in exacerbation DVT prophylaxis release ambulation. Plan: Patient will be continued on current psychiatric medications and continue with breathing treatments as needed. Lab data reviewed which are within normal limits. Continue the current management and further recommendations based on the clinical course. Thank you for your consult.
[2019-11-10] MEDS ORDERED: FLUoxetine HCL 20 MG CAP PO SCH (09:00)
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
[2019-11-10] MEDS: OLANZapine 7.5 MG TAB PO SCH (20:57)
[2019-11-11] MEDS ORDERED: FLUoxetine HCL 20 MG CAP PO SCH (09:00)
--- NOTE | 2019-11-11 20:31 | PN ---
PROGRESS NOTE DATE OF SERVICE: 11/11/2019 CHIEF COMPLAINT: The patient was depressed. He overdosed with the intention on killing himself. He was found unconscious. INTERVAL HISTORY: Patient has been doing fair. He had a quiet day yesterday. He continues to have a very negative outlook. It is noted that he went to 1 group yesterday and at the end of the group when there was to be positive affirmations, he stated "there is nothing good about me" and left the group. He slept fair last night. Today he has been up. He will come out in the day area. He does not interact too much with others. He has been attending groups today. It is noted that in the coping skills group, the following was documented, "the patient required multiple redirects to participating group appropriately. The patient was inconsistently redirectable." The patient continues to report feeling quite down. He did not have specific complaints today. He did make comments about still having a very negative self image. He continued to talk about distress he has over family issues and the lack of connection he has with his son's. He tolerates his psychotropic medication and seemed to understand the protocol for initiating an antidepressant. MENTAL STATUS EXAM: Patient sat without restlessness. Eye contact was fair. Psychomotor activity slow. Speech was monotone. He answered questions with brief responses. He did not say much. His affect was flat. Mood depressed. He was moderately distressed. There was no indication of thought disorder. He said he had vague thoughts of self-harm, though no intent or plan. He was oriented and alert. ASSESSMENT: I will continue the current diagnosis and treatment plan. We will continue to engage the patient in individual and group therapeutic activities. I will continue psychotropic medications the same. Prozac will be increased tomorrow to 60 mg a day. He will continue on Zyprexa 7.5 mg a day. I reviewed medication issues with the patient. We discussed the indication, time course for treatment, potential side effects, metabolic concerns relating to the Zyprexa, movement disorder issues. We discussed discharge planning issues. We will focus on stabilization and discharge planning. MMODL / IJN: [id number] /
[2019-11-11] MEDS: OLANZapine 7.5 MG TAB PO SCH (21:06)
[2019-11-12] MEDS: FLUoxetine HCL 20 MG CAP PO SCH (08:27)
[2019-11-12] MEDS: OLANZapine 10 MG TAB PO SCH ×2 (09:33→20:52)
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
[2019-11-13] MEDS: OLANZapine 10 MG TAB PO SCH ×2 (08:49→20:10)
[2019-11-13] MEDS: FLUoxetine HCL 20 MG CAP PO SCH (08:49)
--- NOTE | 2019-11-13 09:59 | P.PN ---
Progress Note - Text Progress Note Date: 11/13/19 Interval History: Patient was seen wandering the hallways and was directable and agreeable to sp eak with comic writer in the office. Patient appeared to be less irritable today with comic writer however did state that he is continuing to feel hopeless about his future. He continues to be preoccupied with "losing everything" and continues to claim that he feels that he is always being told "no" and everything that he has done. He did claim that his mood has gradually been improving on the medications and has been experiencing no side effects. He states that he is trying to go to some groups however continues to have a negative outlook on the world. He continues to be financially preoccupied and also claims that he has been speaking with one of his friends and is trying to look at if he can stay with him once he is discharged. He claims that he has been sleeping a bit better lately approximately 4-5 hours however states that there are constant interruptions in the unit. At this time patient denies any homical ideations, intent or plan. He denies any intent or plan for suicide however continues to have ongoing thoughts, improving midly. Patient denies any auditory, visual hallucinations and denies any paranoia or delusions. Patient denies any side effects from the medications and has been compliant with meds. Mental Status Exam: General Appearance: Patient appears to be stated age is alert, irritable, improving mildly. Patient appears to have fair hygiene and grooming wearing h ospital gown with improving eye contact. Behavior: Patient is calmly sitting in the chair without any agitated behavior. Irritable, improving mildly Speech: Patient's speech is fluent and nonpressured. Mood/Affect: Patient reports their mood is "a bit better", improving mildly, affect is congruent Suicidality/Homicidality: Patient denies having any homicidal ideation intent or plan. He admits to ongoing suicidal thoughts however no intent or plan. Perceptions: Patient denies any visual hallucinations and denies any auditory hallucinations Though content/process: Guarded/evasive, poverty of content. Memory and concentration: AOX3, grossly intact for the purposes of this session. Judgment and insight: poor/impulsive, improving mildly Assessment Major depressive disorder, severe, recurrent Cannabis use disorder Nicotine dependence Plan: -Patient continues to meet criteria for inpatient psychiatric admission for symptom stabilization and safety. Patient has signed adult voluntary form and medication consent and was placed in patient's chart. -Medications: continue with Prozac 60 mg daily for mood/anxiety. conitnue with Zyprexa 10 mg BID for insomnia/mood stabilization/irritability. -When necessary Ativan and Geodon for agitation/aggression. -NRT - nicotine patch -SW on board for discharge planning. Encouraged the patient to participate in milieu. We'll continue to work with patient his medications to stabilize psychiatrically and give patient resources and plan for discharge. Patient states that he is homeless at this time.
[2019-11-14] MEDS: OLANZapine 10 MG TAB PO SCH ×2 (08:21→20:01)
[2019-11-14] MEDS: FLUoxetine HCL 20 MG CAP PO SCH (08:21)
--- NOTE | 2019-11-14 11:51 | P.PN ---
Progress Note - Text Progress Note Date: 11/14/19 Interval History: Patient was seen sitting in a group today playing a game with other patients and was directable and agreeable to speak with business writer in the office. Patient appeared to be much less irritable today and claims that he feels "calmer" on the medications. He claims that his mood is also been improving and states that he slept "like a baby". He appears to be much less pessimistic today and was more future oriented. He states that he has his old job back, his belongings and also his house is still available to him once he is discharged. He states that he spoke with his friend over the phone who confirmed that these are all available to him and patient claims that he feels much better now. He states that he is trying to go to some groups during the day and interacting with others on the unit. He claims that he has been sleeping better lately approximately 5-6 hours. At this time patient denies any homical ideations, intent or plan. He denies any suicidal thoughts today and denies any intent or plan. Patient denies any auditory, visual hallucinations and denies any paranoia or delusions. Patient denies any side effects from the medications and has been compliant with meds. Mental Status Exam: General Appearance: Patient appears to be stated age is alert, more directable, attempts to cooperate. Patient appears to have fair hygiene and grooming wearing hospital gown with improving eye contact. Behavior: Patient is calmly sitting in the chair without any agitated behavior. Irritable, improving significantly Speech: Patient's speech is fluent and nonpressured. Mood/Affect: Patient reports their mood is "better", improving mildly, affect is congruent Suicidality/Homicidality: Patient denies having any homicidal ideation intent or plan. He denies any more suicidal thoughts, intent or plan. Perceptions: Patient denies any visual hallucinations and denies any auditory hallucinations Though content/process: Guarded/evasive, poverty of content. Memory and concentration: AOX3, grossly intact for the purposes of this session. Judgment and insight: poor, improving mildly Assessment Major depressive disorder, severe, recurrent Cannabis use disorder Nicotine dependence Plan: -Patient continues to meet criteria for inpatient psychiatric admission for symptom stabilization and safety. Patient has signed adult voluntary form and medication consent and was placed in patient's chart. -Medications: continue with Prozac 60 mg daily for mood/anxiety. conitnue with Zyprexa 10 mg BID for insomnia/mood stabilization/irritability. -When necessary Ativan and Geodon for agitation/aggression. -NRT - nicotine patch -SW on board for discharge planning. Encouraged the patient to participate in milieu. Patient did confirm that he has his house and his belongings along with his old job back. Patient will be following up with [facility] upon discharge. Pat ient likely for discharge tomorrow.
[2019-11-15] MEDS: ACETAMINOPHEN TAB 325 MG TAB PO PRN ×2 (04:30→11:18)
[2019-11-15 06:19] VITALS: BP 146/85; PULSE 83; RESP 17; TEMP 97.9
[2019-11-15] MEDS: OLANZapine 10 MG TAB PO SCH (07:44)
[2019-11-15] MEDS: FLUoxetine HCL 20 MG CAP PO SCH (07:44)
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
== END 2019-11-15 12:28 | disposition home or self-care (01) | DRG 885 ==
LOC: 3MHU 22:44
PROVIDERS: ADMIT Psychiatry & Neurology Psychiatry; ATTEND Psychiatry & Neurology Psychiatry
DX: F33.2 Major depressive disorder, recurrent severe without psychotic features (principal); E78.5 Hyperlipidemia, unspecified; T50.902A Poisoning by unspecified drugs, medicaments and biological substances, intentional self-harm, initial encounter; F10.11 Alcohol abuse, in remission; F12.10 Cannabis abuse, uncomplicated; F41.9 Anxiety disorder, unspecified; G47.00 Insomnia, unspecified; F17.200 Nicotine dependence, unspecified, uncomplicated; J45.909 Unspecified asthma, uncomplicated; M19.90 Unspecified osteoarthritis, unspecified site; R45.87 Impulsiveness; Z79.51 Long term (current) use of inhaled steroids; Z79.899 Other long term (current) drug therapy; Z91.5 Personal history of self-harm; Z71.6 Tobacco abuse counseling; Z71.41 Alcohol abuse counseling and surveillance of alcoholic; Z71.51 Drug abuse counseling and surveillance of drug abuser; Z56.0 Unemployment, unspecified; Z59.0 Homelessness; Z88.5 Allergy status to narcotic agent; Z83.3 Family history of diabetes mellitus
CPT/HCPCS: 80053; 80061; 83036; 84443; 85025

== ENCOUNTER → 2019-12-19 | Outpatient (CLI) | payer OTHER ==
--- NOTE | 2019-12-19 22:16 | CONS ---
CONSULTATION REASON FOR CONSULTATION: Sleep apnea. This patient is 59. He was having issues with palpitation. 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 For that reason, the patient was referred to me to rule out any form of sleep breathing disorder. He snores whenever he is very tired and excessively fatigued. Otherwise he does well. No major issues with hypersomnia or sleepiness during the day. He goes to bed around 9 p.m., wakes up between 5:30 and 6 a.m. in the morning. He does have some chronic fatigue and tiredness and sleepiness. He smokes cigarettes, around half a pack of cigarettes per day, and he smokes marijuana. He has chronic back pain. He has had a back injury and the patient has undergone surgery for his back for spinal stenosis and degenerative disc disease. He underwent laminectomy and decompression at L4-5 and L5-S1 in addition to a minimally invasive decompression at various levels and discectomy with placement of a graft. He also has an extensive psychiatric history. The patient was hospitalized earlier in the psych unit for major depression and suicidal attempt with drug overdose. He has chronic anxiety and depression. Currently he is taking a combination of Seroquel and Abilify. Coming back for sleep symptoms, the patient carries an [place] score of 11. He is a nose breather. He has dentures, both upper and lower. No nocturnal arousals, gasping for air or choking sensation. No issues with any significant insomnia at this point in time. The patient is able to generate and maintain sleep. He is seeking disability. PAST MEDICAL HISTORY: 1. History of chronic depression with previous suicidal attempt. 2. History of major depression. 3. History of chronic anxiety. 4. Hyperlipidemia. 5. Osteoarthritis. 6. Chronic back pain. 7. COPD. 8. History of chronic cannabis use. SURGICAL HISTORY: Surgical history includes back surgery with multilevel laminectomy, decompression and discectomy. SOCIAL HISTORY: The patient smokes half a pack of cigarettes a day. No history of alcoholism. No history of IV drugs. He is currently unemployed and lives in a house. He has a previous history of intentional drug overdose and suicide. He smokes marijuana on a daily basis. No history of IV drug use. No history of any alcoholism. FAMILY HISTORY: Positive for Alzheimer's in his mother. His father had diabetes mellitus. Both . No family history of any form of sleep breathing disorder. REVIEW OF SYSTEMS: Fourteen-point review of systems was done and the positive findings are all mentioned above in the history of present illness. PHYSICAL EXAMINATION: VITAL SIGNS: His current vitals are blood pressure 155/85, pulse 76, respirations 16, temperature 98.1, saturation 97% on room air. Height is 6 feet 1 inch. Weight is 235 and neck size is 16-1/2 inches. BMI 31.0. GENERAL APPEARANCE: Calm, comfortable. HEAD: Atraumatic, normocephalic. The patient has dentures, upper and lower, and the patient has Mallampati class I. NECK: Supple. No JVD. No goiter or neck masses. LUNGS: Clear to auscultation. HEART: Heart sounds are regular rate and rhythm. Normal S1, S2. No S3, S4. No murmurs. ABDOMEN: Soft, nontender. No organomegaly. EXTREMITIES: No edema. No cyanosis or clubbing. NEUROLOGIC: Awake and alert. There is no focal neurological deficit. PSYCHIATRIC: Negative for anxiety or depression. IMPRESSION: 1. Nocturnal cardiac arrhythmia, possibly some short cardiac pauses. Rule out underlying sleep breathing disorder. Overall suspicion is low. 2. History of palpitations. 3. History of chronic depression with previous suicidal attempts. 4. Chronic back pain. He has undergone previous back surgery with multilevel laminectomy and decompression. He also has a component of spinal stenosis. 5. Smoker. 6. Osteoarthritis. 7. Hyperlipidemia. 8. History of marijuana smoking. PLAN: 1. Continue the combination of Seroquel and Abilify; these are the patient's outpatient medications. 2. Proceed with a screening polysomnogram, looking for any form of sleep breathing disorder. Overall suspicion for obstructive sleep apnea is low. 3. Encourage weight loss. 4. Sleep hygiene measures in general are adequate. He is utilizing recreational drugs such as marijuana, which is also helping him with sleep. 5. Will continue to follow. Will proceed with a polysomnogram. Will check the patient's cardiac rhythm. Report any abnormalities if noted. MMODL / IJN: [id number] /
== END | disposition home or self-care (01) ==
LOC: SLEEP 14:10
PROVIDERS: ATTEND Internal Medicine Critical Care Medicine
DX: I49.9 Cardiac arrhythmia, unspecified (principal); G89.29 Other chronic pain; M54.9 Dorsalgia, unspecified; J44.9 Chronic obstructive pulmonary disease, unspecified; M48.00 Spinal stenosis, site unspecified; E78.5 Hyperlipidemia, unspecified; M19.90 Unspecified osteoarthritis, unspecified site; F12.90 Cannabis use, unspecified, uncomplicated; Z86.59 Personal history of other mental and behavioral disorders; Z86.2 Personal history of diseases of the blood and blood-forming organs and certain disorders involving the immune mechanism
CPT/HCPCS: 99211

== ENCOUNTER → 2020-03-14 | Outpatient (CLI) | payer OTHER ==
[2020-03-14 19:12] LABS: HCT 46.6 % (39.6-50.0); HGB 16.1 g/dL (13.0-17.0); MCH 31.8 pg (27.0-32.0); MCHC 34.5 g/dL (32.0-37.0); MCV 91.9 fL (80.0-97.0); Mean Platelet Volume 10.1 fL (9.5-12.2); Platelet Count 312 X 10*3/uL (140-440); RBC 5.07 X 10*6/uL (4.40-5.60); RDW 12.1 % (11.5-14.5); WBC 6.84 X 10*3/uL (4.50-10.00)
[2020-03-14 22:47] LABS: Hemoglobin A1C 6.1 % (4.0-6.0)
[2020-03-14 22:57] LABS: African American GFR (CKD) 76.3 (60.0-200.0); Albumin/Globulin Ratio 2.17 (1.60-3.17); Anion Gap 8.2 mmol/L (4.00-12.00); BUN/Creat Ratio 11.67 Ratio (12.00-20.00); Calcium 9.5 mg/dL (8.7-10.3); Carbon Dioxide 24.8 mmol/L (21.6-31.8); Chol/HDL Ratio 6.32; Globulin 2.3 g/dL (1.6-3.3); LDL Cholesterol,Calculated 135.6 mg/dL (0.0-131.0); Magnesium 2.3 mg/dL (1.5-2.4); Non-African American GFR(CKD) 65.8 (60.0-200.0); Potassium 4.2 mmol/L (3.5-5.5); Total Bilirubin 0.6 mg/dL (0.3-1.2); Total Protein 7.3 g/dL (6.2-8.2); VLDL Calculation 45.4 mg/dL (5.00-40.00)
== END | disposition home or self-care (01) ==
LOC: LABWHC1 12:52
PROVIDERS: ATTEND Nurse Practitioner Adult Health
DX: Z13.1 Encounter for screening for diabetes mellitus (principal); E78.5 Hyperlipidemia, unspecified; R00.2 Palpitations; I10 Essential (primary) hypertension
CPT/HCPCS: 36415; 80053; 80061; 83036; 83735; 84443; 85027

== ENCOUNTER 2021-06-11 11:35 | Emergency (ER) | payer OTHER ==
[2021-06-11 11:47] VITALS: TEMP 97.5
[2021-06-11 12:16] VITALS: RESP 16
[2021-06-11] MEDS ORDERED: SODIUM CHLORIDE 0.9% 500 ML 500 ML IV STA (12:20)
[2021-06-11] MEDS ORDERED: amLODIPine 10 MG TAB PO STA (12:21)
[2021-06-11 12:39] LABS: Basophils # (A) 0.1 k/uL (0-0.2); Basophils % (A) 1 %; Eosinophils # (A) 0.2 k/uL (0-0.7); Eosinophils % (A) 3 %; HCT 47.6 % (39.0-53.0); HGB 16.2 gm/dL (13.0-17.5); Lymphocytes # (A) 1.9 k/uL (1.0-4.8); Lymphocytes % (A) 24 %; MCH 32.6 pg (25.0-35.0); MCV 95.8 fL (80.0-100.0); Mean Platelet Volume 7.2; Monocytes # (A) 0.4 k/uL (0-1.0); Monocytes % (A) 6 %; Neutrophils # (A) 5.1 k/uL (1.3-7.7); Neutrophils % (A) 65 %; Platelet Count 295 k/uL (150-450); RBC 4.97 m/uL (4.30-5.90); WBC 7.8 k/uL (3.8-10.6)
[2021-06-11 12:57] LABS: Albumin 4.6 g/dL (3.5-5.0); Calcium 9.9 mg/dL (8.4-10.2); Magnesium 2.1 mg/dL (1.6-2.3); Potassium 4.3 mmol/L (3.5-5.1); Total Bilirubin 0.5 mg/dL (0.2-1.3); Total Protein 7.6 g/dL (6.3-8.2)
--- NOTE | 2021-06-11 13:04 | CT ---
EXAMINATION TYPE: CT brain wo con DATE OF EXAM: 06/11/2021 COMPARISON: 11/07/1999 HISTORY: Dizziness and hypertension. CT DLP: 1094.4 mGycm Automated exposure control for dose reduction was used. FINDINGS: Changes of chronic sinusitis. Orbits symmetric. Craniocervical junction maintained. Sella turcica No evidence of acute hemorrhage mass effect or midline shift. Ventricular size compatible with patien t's age. IMPRESSION: CHRONIC SINUSITIS
--- NOTE | 2021-06-11 13:53 | XR ---
EXAMINATION TYPE: XR chest 1V portable DATE OF EXAM: 06/11/2021 HISTORY: Shortness of breath. COMPARISON: 11/07/2019 TECHNIQUE: Single view of the chest is submitted. FINDINGS: Demonstrated are scattered senescent parenchymal change. Mild increased density right medial lung base could reflect developing infiltrate. Pulmonary vascular prominence without congestion. The heart is stable. Hilar and mediastinal structures are within normal limits. Degenerative changes are seen of the dorsal spine. IMPRESSION: 1. Mild increased density right medial lung base could reflect developing infiltrate. Pulmonary vasc ular prominence without congestion.
[2021-06-11 14:07] VITALS: BP 153/97; PULSE 65
--- NOTE | 2021-06-11 14:22 | ED ---
Dizziness HPI - General Chief Complaint: Dizziness Stated Complaint: lightheaded,high blood pressure Time Seen by Provider: 06/11/21 12:11 Source: patient Mode of arrival: ambulatory Limitations: no limitations - History of Present Illness Initial Comments: Patient complains of his blood pressure being elevated. He was feeling a little lightheaded when he stood up. He currently has no lightheadedness at rest. He has no dizziness. He has no vertigo. He has no nausea. He has no vomiting. He has no chest or belly or back pain. He has no focal weakness. He denies any injuries. He has no change in vision or hearing. - Related Data Home Medications Medication Instructions Recorded Confirmed OLANZapine [ZyPREXA] 10 mg PO HS 06/11/21 06/11/21 Previous Rx's Medication Instructions Recorded FLUoxetine HCL [PROzac] 60 mg PO DAILY 14 Days cap 11/15/19 amLODIPine [Norvasc] 10 mg PO DAILY #30 tablet 06/11/21 Allergies Allergy/AdvReac Type Severity Reaction Status Date / Time meperidine HCl [From Demerol] Allergy Unknown Rash/Hives Verified 06/11/21 13:26 Review of Systems ROS Statement: Those systems with pertinent positive or pertinent negative responses have been documented in the HPI. ROS Other: All systems not noted in ROS Statement are negative. Past Medical History Past Medical History: Asthma, Musculoskeletal Disorder, Osteoarthritis (OA) Additional Past Medical History / Comment(s): asthma as child History of Any Multi-Drug Resistant Organisms: None Reported Past Surgical History: Orthopedic Surgery Additional Past Surgical History / Comment(s): left knee arthroscopy ; pain procedures Past Anesthesia/Blood Transfusion Reactions: No Reported Reaction Additional Past Anesthesia/Blood Transfusion Reaction / Comment(s): no hx blood transfusions Past Psychological History: Depression Smoking Status: Current every day smoker Past Alcohol Use History: None Reported Past Drug Use History: Marijuana - Past Family History Mother Family Medical History: No Reported History Father Family Medical History: Diabetes Mellitus General Exam Limitations: no limitations General appearance: alert, in no apparent distress Head exam: Present: atraumatic, normocephalic, normal inspection Eye exam: Present: normal appearance, PERRL, EOMI. Absent: scleral icterus, conjunctival injection, periorbital swelling ENT exam: Present: normal exam, mucous membranes moist Neck exam: Present: normal inspection. Absent: tenderness, meningismus, lymphadenopathy Respiratory exam: Present: normal lung sounds bilaterally. Absent: respiratory distress, wheezes, rales, rhonchi, stridor Cardiovascular Exam: Present: regular rate, normal rhythm, normal heart sounds. Absent: systolic murmur, diastolic murmur, rubs, gallop, clicks GI/Abdominal exam: Present: soft, normal bowel sounds. Absent: distended, tenderness, guarding, rebound, rigid Extremities exam: Present: normal inspection, full ROM, normal capillary refill. Absent: tenderness, pedal edema, joint swelling, calf tenderness Back exam: Present: normal inspection Neurological exam: Present: alert, oriented X3, CN II-XII intact Psychiatric exam: Present: normal affect, normal mood Skin exam: Present: warm, dry, intact, normal color. Absent: rash Course Vital Signs 06/11/21 06/11/21 06/11/21 11:40 12:12 12:37 Temperature 97.5 F L Pulse Rate 64 64 58 L Respiratory 18 16 16 Rate Blood Pressure 161/106 171/106 155/95 O2 Sat by Pulse 97 97 98 Oximetry 06/11/21 06/11/21 13:15 14:07 Temperature Pulse Rate 60 65 Respiratory 16 16 Rate Blood Pressure 167/96 153/97 O2 Sat by Pulse 97 97 Oximetry EKG Findings - EKG Comments: EKG Findings:: Twelve-lead EKG shows ventricular rate 60 bpm, normal IN interval, normal QRS complexes, no ST elevation or depression, interpreted by me as normal sinus rhythm. Medical Decision Making - Medical Decision Making Patient presents with lightheadedness, hypertension. His entire workup is negative. His physical exam is completely normal. There is no evidence of any acute emergency at this time. He is stable for discharge. - Lab Data Result diagrams: 06/11/21 12:26 06/11/21 12:26 Lab Results 06/11/21 06/11/21 06/11/21 Range/Units 12:26 12:26 12:26 WBC 7.8 (3.8-10.6) k/uL RBC 4.97 (4.30-5.90) m/uL Hgb 16.2 (13.0-17.5) gm/dL Hct 47.6 (39.0-53.0) % MCV 95.8 (80.0-100.0) fL MCH 32.6 (25.0-35.0) pg MCHC 34.0 (31.0-37.0) g/dL RDW 13.0 (11.5-15.5) % Plt Count 295 (150-450) k/uL MPV 7.2 Neutrophils % 65 % Lymphocytes % 24 % Monocytes % 6 % Eosinophils % 3 % Basophils % 1 % Neutrophils # 5.1 (1.3-7.7) k/uL Lymphocytes # 1.9 (1.0-4.8) k/uL Monocytes # 0.4 (0-1.0) k/uL Eosinophils # 0.2 (0-0.7) k/uL Basophils # 0.1 (0-0.2) k/uL Sodium 139 (137-145) mmol/L Potassium 4.3 (3.5-5.1) mmol/L Chloride 106 (98-107) mmol/L Carbon Dioxide 24 (22-30) mmol/L Anion Gap 9 mmol/L BUN 15 (9-20) mg/dL Creatinine 1.28 H (0.66-1.25) mg/dL Est GFR (CKD-EPI)AfAm 70 (>60 ml/min/1.73 sqM) Est GFR (CKD-EPI)NonAf 61 (>60 ml/min/1.73 sqM) Glucose 95 (74-99) mg/dL Calcium 9.9 (8.4-10.2) mg/dL Magnesium 2.1 (1.6-2.3) mg/dL Total Bilirubin 0.5 (0.2-1.3) mg/dL AST 25 (17-59) U/L ALT 24 (4-49) U/L Alkaline Phosphatase 93 (38-126) U/L Troponin I <0.012 (0.000-0.034) ng/mL Total Protein 7.6 (6.3-8.2) g/dL Albumin 4.6 (3.5-5.0) g/dL Disposition Clinical Impression: Hypertension Disposition: HOME SELF-CARE Condition: Good Instructions (If sedation given, give patient instructions): Dizziness (ED), Hypertension (ED) Prescriptions: amLODIPine [Norvasc] 10 mg PO DAILY #30 tablet Is patient prescribed a controlled substance at d/c from ED?: No Referrals: Travis Agudelo DO [Primary Care Provider] - 1-2 days
== END 2021-06-11 14:38 | disposition home or self-care (01) ==
LOC: EC 11:35
DX: I10 Essential (primary) hypertension (principal); J45.909 Unspecified asthma, uncomplicated
CPT/HCPCS: 36415; 70450; 71045; 80053; 83735; 84484; 85025; 93005; 96360; 99284

== ENCOUNTER → 2021-10-21 | Outpatient (CLI) | payer OTHER ==
--- NOTE | 2021-10-21 13:30 | XR ---
EXAMINATION TYPE: XR chest 2V DATE OF EXAM: 10/21/2021 COMPARISON: 06/11/21 HISTORY: Shortness of breath TECHNIQUE: Frontal and lateral views of the chest are obtained. FINDINGS: Scattered senescent parenchymal changes noted. Hyperinflation compatible with COPD. No evidence for infiltrate. No evidence for atelectasis. Heart size is stable. Mediastinal structures are stable and grossly unremarkable. No evidence for hilar prominence. Degenerative changes dorsal spine. IMPRESSION: 1. No evidence for acute pulmonary disease.
== END | disposition home or self-care (01) ==
LOC: RADXRMAIN 12:58
PROVIDERS: ATTEND Family Medicine
DX: R06.02 Shortness of breath (principal)
CPT/HCPCS: 71046

== ENCOUNTER → 2023-06-08 | Outpatient (CLI) | payer MEDICARE, OTHER ==
[2023-06-08 12:08] LABS: Protein/Creatinine Ratio,Urine 0.129
[2023-06-08 15:29] LABS: Albumin 4.8 g/dL (3.8-4.9); BUN/Creat Ratio 13.53 Ratio (12.00-20.00); Carbon Dioxide 27.6 mmol/L (21.6-31.8); Chloride 101 mmol/L (96-109); Creatine Kinase 211 U/L (35-257); Glucose 73 mg/dL (70-110); Phosphorus 2.6 mg/dL (2.4-5.1); Sodium 139 mmol/L (135-145)
[2023-06-08 16:25] LABS: Appearance,Urine Clear (Clear); Bilirubin,Urine Negative (Negative); Blood,Urine Negative (Negative); Color,Urine Yellow (Yellow); Ketones,Urine Negative (Negative); Nitrite,Urine Negative (Negative); PH, Urine 5.5; Specific Gravity,Urine 1.009 (1.001-1.030); Urobilinogen,Urine 0.2 E.U./DL
[2023-06-08 18:57] LABS: Microalbumin Creatinine Ratio <19 mg/g Cr (0-30); Urine Creatinine 64.6 mg/dL (39.0-259.0)
== END | disposition home or self-care (01) ==
LOC: LABWHC1 10:29
PROVIDERS: ATTEND Internal Medicine
DX: N17.9 Acute kidney failure, unspecified (principal); N39.0 Urinary tract infection, site not specified; R80.9 Proteinuria, unspecified
CPT/HCPCS: 36415; 80069; 81003; 82043; 82550; 82570; 84156

== ENCOUNTER → 2023-07-21 | Outpatient (CLI) | payer MEDICARE ==
[2023-07-21 10:26] LABS: HCT 40.1 % (39.6-50.0); HGB 13.3 g/dL (13.0-17.0); MCHC 33.2 g/dL (32.0-37.0); MCV 93.5 FL (80.0-97.0); Mean Platelet Volume 10.3 FL (9.5-12.2); NRBC Per 100 WBC 0 X 10*3/uL (0.00-0.01); Platelet Count 308 X 10*3/uL (140-440); RBC 4.29 X 10*6/uL (4.40-5.60); RDW 12.5 % (11.5-14.5); WBC 6.15 X 10*3/uL (4.50-10.00)
[2023-07-21 18:24] LABS: Appearance,Urine Clear (Clear); Bilirubin,Urine Negative (Negative); Blood,Urine Negative (Negative); Color,Urine Yellow (Yellow); Ketones,Urine Negative (Negative); Nitrite,Urine Negative (Negative); PH, Urine 7.5; Specific Gravity,Urine 1.015 (1.001-1.030); Urobilinogen,Urine 0.2 E.U./DL
[2023-07-21 21:18] LABS: ALT 21 U/L (10-49); AST 24 U/L (14-35); Albumin 4.5 g/dL (3.8-4.9); Albumin/Globulin Ratio 1.88 Ratio (1.60-3.17); Alkaline Phosphatase 66 U/L (41-126); Blood Urea Nitrogen 21.6 mg/dL (9.0-27.0); Calcium 10.2 mg/dL (8.7-10.3); Carbon Dioxide 22.4 mmol/L (21.6-31.8); Chloride 102 mmol/L (96-109); Globulin 2.4 g/dL (1.6-3.3); Glucose 122 mg/dL (70-110); Magnesium 2.1 mg/dL (1.5-2.4); Phosphorus 1.5 mg/dL (2.4-5.1); Sodium 138 mmol/L (135-145); Total Bilirubin 0.3 mg/dL (0.3-1.2); Total Protein 6.9 g/dL (6.2-8.2)
== END | disposition home or self-care (01) ==
LOC: LABWHC1 07:10
PROVIDERS: ATTEND Nurse Practitioner Acute Care
DX: N17.9 Acute kidney failure, unspecified (principal); D64.9 Anemia, unspecified; N39.0 Urinary tract infection, site not specified; E55.9 Vitamin D deficiency, unspecified; R80.9 Proteinuria, unspecified
CPT/HCPCS: 36415; 80053; 81003; 82306; 83735; 83970; 84100; 85027